=== PATIENT | female | born 1940 | race Caucasian/White ===

== ENCOUNTER 2016-12-16 05:16 | Inpatient (IN) ==
[2016-12-14 09:49] LABS: URINE MICRO REVIEW NEEDED? NO; URINE SOURCE VOIDED
[2016-12-14 09:54] LABS: MANUAL DIFF NEEDED? NO
[2016-12-14 10:04] LABS: BASO% 0.2 % (0.0-0.8); BILIRUBIN URINE NEGATIVE (NEGATIVE); BLOOD URINE NEGATIVE (NEGATIVE); COLOR YELLOW; EOS# 0.16 X1000 (0.0-0.7); EOS% 1.9 % (0.0-10.0); GLUCOSE URINE NEGATIVE (NEGATIVE); HEMATOCRIT 43.9 % (37.0-47.0); HEMOGLOBIN 14.5 g/dL (12.0-16.0); IMM GRAN# 0.02 X1000 (0.0-0.04); IMM GRAN% 0.2 % (0.0-0.5); LEUKOCYTES URINE MODERATE (NEGATIVE); LYMPH# 2.01 X1000 (1.2-3.4); LYMPH% 23.3 % (20.5-51.1); MCH 30.7 PG (27-31); MONO# 0.81 X1000 (0.11-0.59); MONO% 9.4 % (1.7-9.3); NITRITE URINE POSITIVE (NEGATIVE); PH URINE 5.5; PLT 202 X1000 (130-400); PROTEIN URINE NEGATIVE (NEGATIVE); RBC 4.72 XMIL (4.2-5.4); SP GRAVITY URINE 1.018; TURBIDITY URINE HAZY (CLEAR); UR EPITHELIAL CELLS <10 /HPF (<10); URINE BACTERIA 4+ /HPF; URINE RBC <10 /HPF (<10); UROBILINOGEN URINE NORMAL (NORMAL)
[2016-12-14 10:18] LABS: INR 0.99; PROTIME 10.4 Seconds (9.2-11.7); PTT 25.9 Seconds (22.0-36.0)
[2016-12-14 10:26] LABS: AGAP 15; BUN 23 mg/dL (8-22); CALCIUM 10.2 mg/dL (8.8-10.2); CHLORIDE 97 mmol/L (98-107); COSMO 286; POTASSIUM 3.8 mmol/L (3.5-5.1); SODIUM 141 mmol/L (136-145); TCO2 29 mmol/L (25-35)
[2016-12-16] MEDS ORDERED: LR 1,000 ML ONE ×2 (06:11→10:56)
[2016-12-16] MEDS ORDERED: COLACE ONE (06:11)
[2016-12-16] MEDS ORDERED: LYRICA ONE (06:11)
[2016-12-16] MEDS ORDERED: PEPCID ONE (06:11)
[2016-12-16] MEDS ORDERED: REGLAN ONE (06:11)
[2016-12-16] MEDS ORDERED: CELEBREX ONE (06:11)
[2016-12-16] MEDS ORDERED: KEFZOL 2 GM/D5W 2 GM/50 ML IVPB ONE (06:12)
[2016-12-16] MEDS ORDERED: SODIUM CHLORIDE 0.9% ONE (06:58)
[2016-12-16] MEDS ORDERED: NEOSPORIN G.U. IRRIGANT ONE (06:58)
[2016-12-16] MEDS ORDERED: TORADOL ONE (06:58)
[2016-12-16] MEDS ORDERED: EXPAREL 1.3% ONE (06:58)
[2016-12-16] MEDS ORDERED: VANCOMYCIN ONE (06:58)
[2016-12-16] MEDS ORDERED: CYKLOKAPRON 1,000 MG/NS 1,000 MG/100 ML IVPB ONE ×2 (06:58→06:59)
[2016-12-16] MEDS ORDERED: MARCAINE 0.25% PF/EPI 1:200,000 ONE (06:58)
[2016-12-16] MEDS ORDERED: DIPRIVAN 1% 0 MG/0 ML BOTTLE ONE (07:12)
[2016-12-16 08:24] LABS: URINE MICRO REVIEW NEEDED? NO; URINE SOURCE CATH
[2016-12-16 08:32] LABS: BILIRUBIN URINE NEGATIVE (NEGATIVE); BLOOD URINE NEGATIVE (NEGATIVE); COLOR YELLOW; GLUCOSE URINE NEGATIVE (NEGATIVE); LEUKOCYTES URINE NEGATIVE (NEGATIVE); NITRITE URINE NEGATIVE (NEGATIVE); PROTEIN URINE NEGATIVE (NEGATIVE); SP GRAVITY URINE 1.019; TURBIDITY URINE CLEAR (CLEAR); UR EPITHELIAL CELLS <10 /HPF (<10); URINE BACTERIA NEGATIVE /HPF; URINE RBC <10 /HPF (<10); URINE WBC <10 /HPF (<10); UROBILINOGEN URINE NORMAL (NORMAL)
[2016-12-16] MEDS ORDERED: LANOXIN PO SCH (09:00)
[2016-12-16] MEDS ORDERED: DIPRIVAN 1% ONE (09:50)
[2016-12-16] MEDS ORDERED: FENTANYL ONE (09:50)
--- NOTE | 2016-12-16 10:07 | OPERATIVE NOTE ---
PROCEDURE DATE: 12/16/2016 PREOPERATIVE DIAGNOSIS: Degenerative osteoarthritis of the left knee. POSTOPERATIVE DIAGNOSIS: Degenerative osteoarthritis of the left knee. PROCEDURE: Left total knee arthroplasty with DePuy Attune size 6 post posterior stabilized femur, size 6 tibial tray, 7 mm rotating platform tibial insert, and a 35 mm medialized anatomic patella. SURGEON: Josesito Rocha MD. ASSISTANTS: HERMILA Nicholson. SECOND RN TRAVELING: JESSICA Almonte. ANESTHESIA: General. IV FLUIDS: 1200 mL lactated Ringer. ESTIMATED BLOOD LOSS: 30 mL. TOURNIQUET TIME: 85 minutes at 400 mmHg. COMPLICATIONS: None. INDICATION: The patient is a 76-year-old female with chronic history of worsening pain and discomfort in the left knee. X-rays revealed significant degenerative osteoarthritis. She has continued pain and discomfort despite appropriate nonoperative treatment. Recommendation to proceed with left total knee arthroplasty was offered. Risks and benefits of surgery were explained, including the risks of anesthesia, , bleeding, infection, failure to relieve pain, postoperative stiffness, nerve injury, blood clots, and other imponderables. All questions were answered. The patient and family wish to proceed with surgery. DETAILS OF THE OPERATION: The patient was taken to the operating room and placed supine on the operating table. Once adequate anesthesia was obtained, patient's left lower extremity was subsequently prepped and draped in usual sterile fashion. Esmarch was used to exsanguinate the left lower extremity and the tourniquet was inflated to 400 mL mmHg. A standard anterior incision was made with a skin knife. Medial and lateral skin envelopes were developed. A standard medial parapatellar arthrotomy was then performed. Patella fat pad was excised. Retractor was then placed. Approximately 1 cm anterior to the PCL insertion, a starting reamer was passed. Intramedullary guide was then placed with the distal femoral cutting block. A distal femoral cut was then performed in standard fashion. A sizing block was placed and measured to size 6. Corresponding pins were placed. Anterior, posterior, and chamfer cuts were then made. After this had been performed, attention was then turned to the proximal tibia where further resection of the ACL and PCL was performed. Using the extramedullary guide, the proximal tibia cutting block was pinned in position. The proximal tibia was then resected. A curved osteotome was used to remove the posterior osteophytes off the distal femur. A spacer block was placed and had good soft tissue balancing in both flexion and extension. Prior to checking the soft tissue balancing, the medial and lateral meniscus was excised. Attention turned back to the proximal tibia where a size 6 appeared to be the correct size. The tibial tray was pinned in position. This was followed by a central reamer and a fin punch. A box cutting guide was then pinned on the distal femur and a box cut was performed. Trial femoral insert was then placed and 2 lug holes were drilled. Trial tibial insert was then placed. The patella was everted and resected in standard fashion. A size 35 appeared to be the correct size. Corresponding holes were drilled. A size 35 patella component was then placed and had some lateral translation. Therefore, a lateral release was then performed. Had good patellofemoral tracking after this had been conducted. The components were then removed. Copious irrigation was then performed with antibiotic irrigation while vancomycin was mixed with cement on the back table. Sequential cementing was then performed, first with a tibial tray and excess cement was removed with a Modena, followed by the femoral component and excess cement removed with a Modena, followed by a trial tibial insert in full extension and axial loading was maintained while the cement cured. The patella cemented in standard fashion. Patella clamp was placed. Exparel was placed in the deep soft tissue, as well as subcutaneous tissue while the cement was curing. After cement had cured the trial tibial insert 7 mm was deemed to be the correct size. Had good soft tissue balancing and range of motion. The trial tibial insert was removed. Exparel was placed in the deep posterior capsule. The wound was copiously irrigated once again with antibiotic pulsatile lavage. A 7 mm rotating platform tibial insert was placed and had good soft tissue balancing and good patellofemoral tracking. A 1/8 Hemovac drain was placed and was not sewn in. Copious irrigation then performed once again with antibiotic pulsatile lavage. Number 1 Vicryl was used to repair the arthrotomy, followed by 2-0 Vicryl in the subcutaneous tissue, and skin hair. Adaptic, sterile 4 x 4, ABD pad, Webril, cryo unit, and Rudy wrap was placed on the left lower extremity. The patient tolerated the procedure well with no complications and was transferred to recovery room in stable condition. cc: Josesito Rocha MD
--- NOTE | 2016-12-16 10:13 | Diag Imaging Result Doc PS360 ---
KNEE 1-2 VIEWS-LEFT - 12/16/2016 INDICATION: l tka TECHNIQUE: Two views COMPARISON: None FINDINGS: There has been left total knee arthroplasty. Alignment is anatomic. No evidence of hardware fracture or loosening. IMPRESSION: No evidence of complication. Electronically signed by Ricky Patel 12/16/2016 10:11 AM
[2016-12-16] MEDS: NORVASC PO SCH (10:21)
[2016-12-16] MEDS: PROTONIX PO SCH (10:21)
[2016-12-16] MEDS: LIPITOR PO SCH (10:21)
[2016-12-16] MEDS: BETAPACE PO SCH ×2 (10:21→20:35)
[2016-12-16] MEDS: SYNTHROID PO SCH (10:21)
[2016-12-16] MEDS: CATAPRES PO SCH ×2 (10:22→20:35)
[2016-12-16] MEDS: COZAAR PO SCH (10:22)
[2016-12-16] MEDS: DYAZIDE PO SCH (10:22)
[2016-12-16] MEDS ORDERED: NS 1,000 ML ONE (10:32)
[2016-12-16] MEDS ORDERED: DECADRON ONE (10:56)
[2016-12-16] MEDS ORDERED: OFIRMEV 1000 MG/ISOTONIC SOLN 1,000 MG/100 ML BOTTLE ONE (10:56)
[2016-12-16] MEDS ORDERED: XYLOCAINE-MPF 2% ONE (10:56)
[2016-12-16] MEDS ORDERED: ZOFRAN ONE (10:56)
[2016-12-16] MEDS ORDERED: MORPHINE IV PRN (11:24)
[2016-12-16] MEDS: NS 1,000 ML IV SCH ×2 (11:24→20:34)
[2016-12-16] MEDS ORDERED: ZOFRAN IV PRN (11:28)
[2016-12-16] MEDS ORDERED: MILK OF MAGNESIA PO PRN (11:28)
[2016-12-16] MEDS: OXY IR PO PRN ×2 (11:38→20:36)
[2016-12-16] MEDS: KEFZOL 2 GM/D5W 2 GM/50 ML IVPB IV SCH ×2 (14:23→23:37)
[2016-12-16] MEDS ORDERED: XARELTO PO SCH (17:00)
[2016-12-16] MEDS: TYLENOL PO SCH ×2 (18:08→23:37)
[2016-12-16] MEDS: PERIDEX MT SCH (20:34)
[2016-12-16] MEDS: COLACE PO SCH (20:35)
[2016-12-16] MEDS ORDERED: CELEXA PO SCH (21:00)
[2016-12-17] MEDS: NS 1,000 ML IV SCH ×2 (00:54→11:44)
[2016-12-17] MEDS: OXY IR PO PRN ×2 (05:58→11:43)
[2016-12-17] MEDS: TYLENOL PO SCH (05:58)
[2016-12-17] MEDS ORDERED: XARELTO PO SCH ×4 (06:00→09:00)
[2016-12-17 06:07] LABS: HEMATOCRIT 35.9 % (37.0-47.0); HEMOGLOBIN 11.7 g/dL (12.0-16.0)
[2016-12-17 06:43] LABS: AGAP 15; BUN 21 mg/dL (8-22); CALCIUM 8.2 mg/dL (8.8-10.2); CHLORIDE 102 mmol/L (98-107); COSMO 286; POTASSIUM 3.8 mmol/L (3.5-5.1); SODIUM 141 mmol/L (136-145); TCO2 24 mmol/L (25-35)
--- NOTE | 2016-12-17 06:58 | PROGRESS NOTE ---
DATE: 12/17/2016 SUBJECTIVE: Patient is a pleasant 76-year-old female who is 1 day status post left total knee arthroplasty. She is currently resting comfortably, has no complaints. OBJECTIVE: On physical exam, the patient's left lower extremity dressing is intact. Her calf is soft. She has active dorsiflexion and plantar flexion. She is neurovascularly intact distally. LABORATORY DATA: Her hemoglobin is 11.7, hematocrit is 35.9. IMPRESSIONS: Postop day #1, status post left total knee arthroplasty. PLAN: At this point, we will change her dressing and discontinue her drain and Ojeda. We will also Hep-Lock her IV. We will plan on discharging home after physical therapy. Will plan on proceeding with outpatient physical therapy. cc: Josesito Rocha MD
[2016-12-17] MEDS: BETAPACE PO SCH (09:29)
[2016-12-17] MEDS: SYNTHROID PO SCH (09:30)
[2016-12-17] MEDS: PERIDEX MT SCH (09:30)
[2016-12-17] MEDS: LIPITOR PO SCH (09:30)
[2016-12-17] MEDS: PROTONIX PO SCH (09:31)
[2016-12-17] MEDS: COLACE PO SCH (09:32)
[2016-12-17] MEDS: COZAAR PO SCH (09:38)
[2016-12-17] MEDS: CATAPRES PO SCH (09:38)
[2016-12-17] MEDS: DYAZIDE PO SCH (09:39)
[2016-12-17] MEDS: NORVASC PO SCH (09:39)
[2016-12-17 11:39] VITALS: BP 124/60
[2016-12-18] MEDS ORDERED: LANOXIN PO SCH (09:00)
== END 2016-12-17 14:17 | disposition home or self-care (01) ==
LOC: SURHOLD 05:16 → 4N 07:31
PROVIDERS: ADMIT Orthopaedic Surgery Adult Reconstructive Orthopaedic Surgery; ATTEND Orthopaedic Surgery Adult Reconstructive Orthopaedic Surgery

== ENCOUNTER 2019-03-21 20:45 | Inpatient (IN) ==
[2019-03-21] MEDS ORDERED: CARDIZEM IV ONE ×2 (21:17→23:23)
--- NOTE | 2019-03-21 21:19 | EKG Report ---
Test Performed on : 03/21/2019 8:50:52 PM Test Reason : A-FIB Blood Pressure : / mmHG Vent. Rate : 130 BPM Atrial Rate : 136 BPM P-R Int : 000 ms QRS Dur : 082 ms QT Int : 294 ms P-R-T Axes : 000 043 253 degrees QTc Int : 432 ms Atrial fibrillation. with rapid ventricular response. ST & T wave abnormality, consider inferolateral ischemia Abnormal ECG When compared with ECG of 13-OCT-2018 09:26, Atrial fibrillation. has replaced Sinus rhythm. Vent. rate has increased BY 70 BPM Non-specific change in ST segment in Inferior leads ST now depressed in Lateral leads T wave inversion now evident in Inferior leads T wave inversion now evident in Lateral leads Confirmed by Veronica BAJWA, Bharathi Goldstein ([id number]) on 03/22/2019 8:33:59 AM
--- NOTE | 2019-03-21 21:33 | Diag Imaging Result Doc PS360 ---
EXAM: CHEST-PORTABLE - 03/21/2019 HISTORY: afib with RVR, palpitations TECHNIQUE: Portable chest COMPARISON: 10/13/2018 FINDINGS: Heart size appears mildly enlarged and stable. There is mild interstitial marking prominence similar to prior. There is no dense consolidation, substantial pleural effusion, or pneumothorax identified. IMPRESSION: Mild cardiomegaly and mild interstitial marking prominence similar to prior. Electronically signed by Yoni Goyal 03/21/2019 9:31 PM
[2019-03-21 21:51] LABS: BASO# 0.02 X1000 (0.0-0.2); BASO% 0.2 % (0.0-0.8); EOS# 0.15 X1000 (0.0-0.7); EOS% 1.7 % (0.0-10.0); HEMATOCRIT 41.7 % (37.0-47.0); IMM GRAN# 0.03 X1000 (0.0-0.04); IMM GRAN% 0.3 % (0.0-0.5); LYMPH# 1.81 X1000 (1.2-3.4); LYMPH% 20.9 % (20.5-51.1); MCH 30.6 PG (27-31); MCHC 33.6 g/dL (33-37); MONO# 0.85 X1000 (0.11-0.59); MONO% 9.8 % (1.7-9.3); MPV 11.9 FL (7.4-10.4); NEUT# 5.82 X1000 (1.4-6.5); NEUT% 67.1 % (42.2-75.2); PLT 167 X1000 (130-400); RBC 4.58 XMIL (4.2-5.4); RDW 14.7 % (11.5-14.5); WBC 8.68 X1000 (4.8-10.8)
[2019-03-21 22:00] LABS: INR 2.51; PROTIME 27.7 Seconds (11.0-16.0); PTT 35.3 Seconds (22.3-41.8)
[2019-03-21] MEDS ORDERED: LOPRESSOR IV ONE (22:10)
[2019-03-21 22:23] LABS: AGAP 18; ALB/GLOB RATIO 1.7; ALBUMIN 4.3 g/dL (3.5-5.0); ALKALINE PHOSPHATASE 65 U/L (32-104); BUN 30 mg/dL (8-22); CALCIUM 9.5 mg/dL (8.8-10.2); CHLORIDE 101 mmol/L (98-107); COSMO 292; CREATININE 0.5 mg/dL (0.5-0.9); ESTIMATED GFR > 60; GLUCOSE 143 mg/dL (70-104); GOT 16 U/L (10-30); GPT 19 U/L (10-36); POTASSIUM 3.2 mmol/L (3.5-5.1); SODIUM 142 mmol/L (136-145); TCO2 23 mmol/L (25-35); TOTAL BILIRUBIN 0.21 mg/dL (0.20-1.00); TOTAL PROTEIN 6.8 g/dL (6.3-8.3)
[2019-03-21] MEDS ORDERED: KLOR-CON PO ONE (22:48)
[2019-03-21] MEDS ORDERED: POTASSIUM CHLORIDE 20% LIQUID PO ONE (23:13)
--- NOTE | 2019-03-21 23:36 | PROVIDER DOCUMENTATION ---
This chart was entered by Fara Donnelly Scribe, acting as scribe for Teresa Mas MD. HPI-Cardiac General - General Chief Complaint: Palpitations Stated Complaint: AFIB Time Seen by Provider: 03/21/19 20:54 Source: patient Allergies/Adverse Reactions: Patient Allergies Allergy/AdvReac Type Severity Reaction Status Date / Time No Known Allergies Allergy Verified 10/13/18 15:45 Home Medications: Home Medication List Medication Instructions Recorded Confirmed Last Taken Type Citalopram Hydrobromide [Celexa] 20 mg PO QHS 12/31/14 10/13/18 1 Day Ago History ~10/12/18 Clonidine [Catapres] 0.1 mg PO BID 12/31/14 10/13/18 10/13/18 History Rivaroxaban [Xarelto] 20 mg PO WSUPPER #90 tablet 01/21/15 10/13/18 1 Day Ago Rx ~10/12/18 Sotalol [Betapace] 120 mg PO BID #180 tablet 01/21/15 10/13/18 10/13/18 Rx Levothyroxine [Synthroid] 175 microgm PO DAILY@0700 #90 05/07/17 10/13/18 10/13/18 Rx tablet Diltiazem HCl [Cartia Xt] 180 mg PO QAM 10/13/18 10/13/18 10/13/18 History Acetaminophen [Tylenol] 650 mg PO Q4H PRN PRN tab 10/14/18 Unknown Rx Hydralazine [Apresoline] 10 mg PO TID tab 10/14/18 Unknown Rx Losartan [Cozaar] 100 mg PO DAILY tab 10/14/18 Unknown Rx - History of Present Illness-Cardiac Nature of Presenting Problem: pt is a 78 yr old female presenting with report that she began feeling her heart racing and fluttering. pt reports hx of Afib, last episode in August, pt is followed by Dr sOman. pt denies any shortness of breath, chest pain or dizziness. Denies any medication changes and reports compliance with her Cardizem PO 180mg BID. Quality of Pain: reports: none Severity in ED: moderate Onset/Duration: abrupt (1944) Timing: still present Context/Activities at Onset: reports: light activity Modifying Factors: improves with: other medication (cardizem-no relief) Palpitation Quality: irregular (fast, fluttering, irregular) History of arrythmia: reports: A-Fib Recent use of:: reports: no stimulants Nitro Today/Relief: reports: no nitro taken today Aspirin Treatment Today: reports: no aspirin today Associated Symptoms: reports: diaphoresis. denies: dizziness, nausea, shortness of breath, vomiting Similar Symptoms Previously?: Yes Recently Seen Here or By Another Healthcare Provider: No Review of Systems - Adult - REVIEW OF SYSTEMS - ADULT Constitutional: denies: fever, fatique Eyes: denies: blurred vision, double vision Ears, Nose, Mouth & Throat: reports: no symptoms reported Cardiovascular: reports: irregular heart rate, palpitations. denies: chest pain, syncope Respiratory: denies: shortness of breath Gastrointestinal: denies: nausea, vomiting Genitourinary: reports: no symptoms reported Musculoskeletal: reports: no symptoms reported Integumentary: reports: no symptoms reported Neurological: denies: dizziness/vertigo, headache/migraines, syncope Psychiatric: reports: no symptoms reported Endocrine: reports: no symptoms reported Hematologic/Lymphatic: reports: no symptoms reported Allergic/Immunologic: reports: no symptoms reported All Other Systems: Reviewed and Negative Past History - Adult - PAST MEDICAL HISTORY-ADULT Review of Records: reports: Old Records Reviewed, Nursing Assessment Review, Medications Reviewed, Social history reviewed & non-contributory. Major Childhood Illnesses: reports: denies history Cardiovascular: reports: A-Fib, HTN Respiratory: reports: sleep apnea Gastrointestinal: reports: denies history Obstetrical/Gynecological: reports: denies history Genitourinary: reports: denies history Musculoskeletal: reports: denies history Neurological: reports: denies history Psychiatric: reports: denies history Endocrine/Immune: reports: thyroid disorder Other Conditions: reports: denies history - PRIOR SURGERIES/PROCEDURES Surgical/Procedure History: reports: cholecystectomy, hysterectomy, joint replacement - IMMUNIZATION STATUS Childhood Immunizations: See Nurse Assessment Flu Vaccine: See Nurse Assessment - FAMILY HISTORY Family History: reviewed, not pertinent - SOCIAL HISTORY Smoking: denies Substance Use: denies Living Situation: family Physical Exam-General - PHYSICAL EXAM-ADULT Initial Vital Signs Reviewed: Yes - CONSTITUTIONAL General Appearance: appears well, alert, no apparent distress, obese - EYES Eyes: PERRL/EOMI - HEAD, EARS, NOSE, MOUTH & THROAT HENMT: normocephalic/atraumatic, moist mucous membranes - NECK Neck: supple, normal inspection - RESPIRATORY Respiratory: chest non-tender, lungs clear, normal breath sounds - CARDIOVASCULAR Cardiovascular: normal peripheral pulses, tachycardia, irregularly irregular - GASTROINTESTINAL (ABDOMEN) Abdominal Exam: normal bowel sounds, non tender, soft - MUSCULOSKELETAL Back Exam: normal inspection Extremity: normal range of motion, non-tender, normal gait, normal inspection - SKIN Integumentary: normal color, normal turgor, warm/dry - NEUROLOGIC Neurologic: grossly normal - PSYCHIATRIC Psych/Mental Status: normal mood/affect, oriented x 3 Progress - PLAN OF CARE/RESULTS Progress/Plan/Lab Results: Vital Signs - 8 hr 03/21/19 20:50 Temperature 98.7 F Pulse Rate 130 H Respiratory Rate 19 Blood Pressure 135/89 O2 Sat by Pulse Oximetry 95 Laboratory Results - last 24 hr 03/21/19 03/21/19 03/21/19 21:36 21:36 21:36 WBC 8.68 RBC 4.58 Hgb 14.0 Hct 41.7 MCV 91.0 MCH 30.6 MCHC 33.6 RDW Std Deviation 14.7 H Plt Count 167 MPV 11.9 H Immature Gran % (Auto) 0.3 Neut % (Auto) 67.1 Lymph % (Auto) 20.9 Mayes % (Auto) 9.8 H Eos % (Auto) 1.7 Baso % (Auto) 0.2 Immature Gran # (Auto) 0.03 Neut # (Auto) 5.82 Lymph # (Auto) 1.81 Mayes # (Auto) 0.85 H Eos # (Auto) 0.15 Baso # (Auto) 0.02 PT INR PTT (Actin FS) Sodium 142 Potassium 3.2 L Chloride 101 Carbon Dioxide 23 L Anion Gap 18 BUN 30 H Creatinine 0.5 Estimated GFR/1.73 m2 > 60 BUN/Creatinine Ratio 60 Glucose 143 H Calculated Osmolality 292 Calcium 9.5 Total Bilirubin 0.21 AST 16 ALT 19 Alkaline Phosphatase 65 Troponin T Ina-X-Unvmrbdetqa Pept 364 Total Protein 6.8 Albumin 4.3 Globulin 2.5 Albumin/Globulin Ratio 1.7 03/21/19 03/21/19 21:36 21:36 WBC RBC Hgb Hct MCV MCH MCHC RDW Std Deviation Plt Count MPV Immature Gran % (Auto) Neut % (Auto) Lymph % (Auto) Mayes % (Auto) Eos % (Auto) Baso % (Auto) Immature Gran # (Auto) Neut # (Auto) Lymph # (Auto) Mayes # (Auto) Eos # (Auto) Baso # (Auto) PT 27.7 H INR 2.51 PTT (Actin FS) 35.3 Sodium Potassium Chloride Carbon Dioxide Anion Gap BUN Creatinine Estimated GFR/1.73 m2 BUN/Creatinine Ratio Glucose Calculated Osmolality Calcium Total Bilirubin AST ALT Alkaline Phosphatase Troponin T < 0.010 Ahg-O-Wuxchnxonik Pept Total Protein Albumin Globulin Albumin/Globulin Ratio Orders Category Date Time Status CHEST-PORTABLE [RAD] Stat Exams 03/21/19 21:16 Completed CBC WITH ELECTRONIC DIFF [HEME] Stat Lab 03/21/19 21:36 Completed COMPREHENSIVE METABOLIC PANEL [CHEM] Stat Lab 03/21/19 21:36 Completed OCCULT BLOOD DIAG 1-[address] Stat Lab 03/22/19 00:17 Uncollected PRO B-NATRIURETIC PEPTIDE Stat Lab 03/21/19 21:36 Completed PROTIME WITH INR [COAG] Stat Lab 03/21/19 21:36 Completed PTT [COAG] Stat Lab 03/21/19 21:36 Completed TROPONIN T Stat Lab 03/21/19 21:36 Completed Diltiazem 125 mg/D5w [Cardizem 125 mg/D5w] Med 03/21/19 23:30 Active 125 mg in 125 ml IV As Directed mls/hr Diltiazem [Cardizem] Med 03/21/19 21:17 Discontinued 10 mg IV NOW ONE Diltiazem [Cardizem] Med 03/21/19 23:23 Discontinued 10 mg IV NOW ONE Metoprolol [Lopressor] Med 03/21/19 22:10 Discontinued 5 mg IV NOW ONE Ns + KCl 20 Meq 1,000 ml Med 03/22/19 00:09 Active IV 125 mls/hr Potassium Chloride 20% Liquid Med 03/21/19 23:13 Discontinued 40 meq PO NOW ONE Potassium Chloride E.r. [Klor-Con] Med 03/21/19 22:48 Discontinued 40 meq PO NOW ONE EKG [EKG] Stat Ther 03/21/19 21:16 Draft Transfer/Admit Order [TRANSFER] Routine Transfer 03/22/19 00:00 Ordered Patient with initial HR in the 120-130s. She was given a dose of Caridzem 10mg IV and this did not seem to control her HR. She continued to stay in the 120s. Gave patient dose of IV metoprolol and she came down slightly more to low 100s but would still continue to increase to the 120s-130s. Spoke to patient about need for cardizem drip. She agrees with admission. Spoke with Dr Pan who accepted patient for admission. K repleted. Troponin negative. INR is therapeutic. Further orders to be placed by hospitalist team. Result Diagrams: 03/21/19 21:36 03/21/19 21:36 - EKG 1 Time of EKG reading by physician:: 20:50 EKG Read and Signed by:: Teresa Mas EKG Interpretation (*Must complete 3 of following elements*): Abnormal (st and t wave abnormality, consider inferolateral ischemia) Rate: 130 Rhythm: atrial fibrillation with RVR ST Wave: normal - XRAY 1 XRAY Study: Chest Impression: Abnormal ( EXAM: CHEST-PORTABLE - 03/21/2019 HISTORY: afib with RVR, palpitations TECHNIQUE: Portable chest COMPARISON: 10/13/2018 FINDINGS: Heart size appears mildly enlarged and stable. There is mild interstitial marking prominence similar to prior. There is no dense consolidation, substantial pleural effusion, or pneumothorax identified. IMPRESSION: Mild cardiomegaly and mild interstitial marking prominence similar to prior. Electronically signed by Yoni Goyal 03/21/2019 9:31 PM 03/21/192130 Interpreting Physician: Yoni Goyal MD Dictated Date/Time: 03/21/192129 cc: Teresa Mas MD; Dakota Johnston MD) Comparison with other Films: no changes (10/13/18) - CONSULTS/PCP/HOSPITALIST Notification Time Discussed: 23:35 Reason/Comments: Dr Pan Consult Disposition: Admit Departure - Departure Date of Disposition Decision: 03/21/19 Time of Disposition Decision: 23:35 DIAGNOSIS: Atrial fibrillation with RVR, Palpitations, Hypokalemia Disposition: ADMITTED INPATIENT Certified Medical Emergency: Emergent Condition: Stable Referrals and Follow-Ups: Dakota Johnston MD [Primary Care Provider] - - Critical Care Note This patient required my direct & personal management of CC.: Yes Total Time (mins): 75 Critical Care Statement: This patient required my direct personal management to treat or rule out processes, the absence of which, could potentiallly result in sudden, clinically significant life or limb threatening deterioration. Attestation - Physician/ SESAR Attestation Patient care was provided by Advanced Practice Provider:: No The physician spent face to face time with patient:: Yes Advanced Practice Provider documentation review:: Supervising physician onsite and consulted in the evaluation and care of this patient. The physician did have a face to face encounter with the patient. This chart was documented by the indicated scribe, (Fara Donnelly Scribe) and accurately reflects the services I performed and decisions made by me, Teresa Mas MD, as attested by the provider's signature.
[2019-03-21] MEDS: CARDIZEM 125 MG/D5W 125 MG/125 ML IVPB IV SCH (23:52)
[2019-03-22] MEDS ORDERED: NS + KCL 20 MEQ 1,000 ML IV ONE (00:09)
--- NOTE | 2019-03-22 01:14 | HISTORY AND PHYSICAL ---
REASON FOR ADMISSION: Fluttering heart today, 1 days' duration. HISTORY OF PRESENT ILLNESS: Ms. Trent Alex is a 78-year-old woman with a past medical history of atrial fibrillation, hypothyroidism, hypertension, obstructive sleep apnea, hyperlipidemia, reflux disease, diverticulosis, who came in late last night because after taking her evening medication and sitting down she noticed a funny fluttering sensation in her heart. Shortly after which she started having some degree of dyspnea at rest. She denies any antecedent history of long distance travel, leg swelling, PND, orthopnea, chest pain. She did break out in a sweat and checked her blood pressure, it was in the 150/90 range; however, her heart rate in the 130s and was frequently changing. She said this is consistent with her prior episodes of having atrial fibrillation with a high rate. Denies any other cardiorespiratory complaints. Denies any change in her medications, although they did increase the dose of her Synthroid 2 months ago. Denies any GI or complaints. No focal neurological complaints. No headache or visual problems. No polyuria or polydipsia. REVIEW OF SYSTEMS: Twelve system was done, positive findings per HPI. Patient denies any vomiting, diarrhea, or bleeding. HOME MEDICATIONS: Have not been reconciled, but per her old records, she has been on sotalol, Xarelto, Cardizem, and levothyroxine to name a few. ALLERGIES: Amlodipine, Crestor, fenofibrate, Imodium, Lipitor. SOCIAL HISTORY: Does not smoke, drink, or use drugs actively. No illicit drug use. FAMILY HISTORY: Notable for heart disease and possible pancreatic cancer. LABORATORY WORK: EKG showed atrial fib with rapid ventricular rate, nonspecific ST, T-wave changes. Her potassium was notably low at 3.2, BUN is 30, creatinine 0.5. Glucose 143. White count 8000, H and H 14 and 41, platelets 167,000 with no notable differential. Troponin's negative. PTT is normal. PT was 27, INR 2.5. Chest film, mild cardiomegaly with mild interstitial marking prominence similar to prior. In addition, the patient has had a prior stress test done in October of this year. Echo was not noted, but I presume was done this year. PHYSICAL EXAMINATION: GENERAL: An pleasant, obese, elderly woman, not in acute distress. A and O x3. Normal mood and affect. VITAL SIGNS: Heart rate is 130, temperature is 98.7 degrees, respirations 19, blood pressure 155/89, O2 saturation 95% on room air. HEENT: Head is normocephalic, atraumatic. Eyes: KEITH, EOMI. She is anicteric, not pale. ENT: Grossly normal, there is some cyanosis. NECK: Supple. No JVD or carotid bruit. No thyromegaly. CHEST: Clear when auscultated in both lung powell. CARDIOVASCULAR: First and second heart sounds heard. No gallops, murmurs, rubs. Rhythm is irregular. ABDOMEN: Protuberant, soft, nontender. No mass, megaly. Bowel sounds normal. Rectal exam deferred at this time. EXTREMITIES: Patient has good distal pulse volumes, although there is fluctuating pulse volume and irregular rhythm, but pulses are symmetrical. No edema, clubbing, or peripheral cyanosis. NEUROLOGICAL: No gross focal deficits. SKIN: Intact. No breakdown, lesions, or erythema. MUSCULOSKELETAL: Grossly normal. ASSESSMENT: 1. Atrial fibrillation with a rapid ventricular rate. 2. Hypertension. 3. Hyperlipidemia. 4. Obstructive sleep apnea. 5. Hypothyroidism. 6. Hypokalemia. 7. Probable dehydration. PLAN: Patient will be transferred to our step-down unit, if there are no beds she can bored in the ICU. We will start her on Cardizem drip. She was given IV push of Cardizem x2, and metoprolol, which will transiently keep her heart rate down below 100, but after about 10 to 15 minutes it would spike back into the 120s to 130s. We will continue her sotalol and Xarelto, if she still taking these and they have been reconciled. We will check a TSH since recently they bumped up her dose, to ensure this is not the inciting factor. Check her magnesium level, correct it also if it is low. I have not ordered an echocardiogram, I will defer to Dr. Dakota Johnston to decide if he wants to do this. The patient's BUN is slightly elevated, I do not know if the patient is dehydrated, however, also entertain the possibility of a possible occult upper GI bleed and Hemoccult may be in ordered, BUN and creatinine closely followed, even though the patient denies any bleeding or melanotic stools. cc: MD Dakota William MD
[2019-03-22] MEDS ORDERED: ZOFRAN IV PRN (02:01)
[2019-03-22] MEDS ORDERED: TYLENOL PO PRN ×2 (02:01→08:57)
[2019-03-22] MEDS: CARDIZEM 125 MG/D5W 125 MG/125 ML IVPB IV SCH (06:31)
[2019-03-22] MEDS ORDERED: MAGNESIUM SULFATE 2 GM/S.W.I. 2 GM/50 ML IVPB IV ONE (09:49)
[2019-03-22] MEDS ORDERED: BETAPACE PO ONE (10:31)
[2019-03-22] MEDS: SYNTHROID PO SCH (10:39)
--- NOTE | 2019-03-22 10:46 | CARDIOLOGY CONSULTATION ---
DATE: 03/22/2019 INDICATION FOR THE CONSULTATION: Heart fluttering. HISTORY OF PRESENT ILLNESS: Ms. Alex is a 78-year-old female with a past medical history of atrial fibrillation, hypothyroidism, hypertension. She presented for complaints of palpitations and shortness of breath that began last night after she ate at [employer]. She reports no recent illnesses. She has been under some emotional stress lately secondary to undergoing a renovation at her house. She reports no chest pain. She has been compliant with her medications including her sotalol as well as her Xarelto. She has had no recent bleeding issues. PAST MEDICAL HISTORY: 1. Atrial fibrillation with previous cardioversions and 2014, 2016 and earlier this year. She is maintained on sotalol and Xarelto. 2. Coronary disease with calcium score total of 231. 3. Hypertension. 4. Hyperlipidemia. 5. Reflux disease. 6. Hypothyroidism. 7. Obstructive sleep apnea. SOCIAL HISTORY: She is . is present in the room. No tobacco products. FAMILY HISTORY: Father at 69 due to a heart attack. Mother at 93 secondary to possible pancreatic cancer. REVIEW OF SYSTEMS: A 10 system review of systems is negative except for those mentioned HPI. PHYSICAL EXAMINATION: She is afebrile. Her heart rate presently is in the 110s to 120s. She is on a diltiazem infusion. Her blood pressure is 134/72.General: She is in no acute distress. HEENT: Oropharynx is moist. Poor dentition. Eye examination is pink conjunctivae. White sclerae. Neck: Examination shows no obvious thyromegaly or thyroid tenderness. Cardiovascular: She is found to be in an irregularly irregular tachycardic rhythm. She has no murmurs. She has no S3. She has no lower extremity edema. Chest: Clear bilaterally. She has no increased work of breathing. Abdomen: Soft, nontender, nondistended. She has no obvious organomegaly. Skin: Warm and dry throughout without any rashes. Neurological: She is moving all extremities well. She has no lateralizing deficits. PERTINENT DATA: She had an EKG ordered on presentation that shows atrial fibrillation with RVR rate of 130 beats per minute. She has mild diffuse nonspecific ST-segment changes. Her chest x- ray on presentation demonstrated mild cardiomegaly with mild interstitial prominence. LABORATORY DATA: Shows a white count of 8.7, hematocrit is 41, platelet count is 167,000, INR 2.5. Sodium 142, potassium 3.2, BUN 30, creatinine 0.5. Her TSH today is 9.41. Her Mag level is 1.6. ASSESSMENT: Ms. Alex is a 78-year-old female who presents with complaints of palpitations and found to be in atrial fibrillation. PLAN: We will schedule cardioversion today. We will increase her sotalol to 160 b.i.d. I will replete her potassium as well as give her some additional magnesium. She was given potassium yesterday evening at 23:00. I will give her some magnesium. cc: MD Dakota Sanford MD
[2019-03-22] MEDS ORDERED: ROBINUL ONE (10:50)
[2019-03-22] MEDS ORDERED: DIPRIVAN 1% ONE (10:50)
[2019-03-22] MEDS ORDERED: XYLOCAINE-MPF 2% ONE (10:50)
[2019-03-22] MEDS ORDERED: ANESTHESIA PB SET 88 IN 5742 ONE (10:58)
[2019-03-22] MEDS ORDERED: CLAVE TWINSITE 32 IN 11959 ONE (10:58)
[2019-03-22] MEDS ORDERED: NS 1,000 ML ONE (10:58)
--- NOTE | 2019-03-22 11:46 | CARDIAC CATH REPORT ---
PROCEDURE NAME: - INDICATION: Atrial fibrillation. PROCEDURE IN DETAIL: Ms. Alex was brought to the catheterization laboratory in a fasting state. Informed consent was obtained. Prepped in the usual fashion. She was anesthetized with propofol per anesthesia. After appropriate sedation, she was converted to sinus with 1 shock delivered in a synchronized fashion at 120 joules. No apparent complications. She tolerated the procedure well. cc: MD Dakota Sanford MD
[2019-03-22] MEDS: CARDIZEM CD PO SCH (16:11)
[2019-03-22] MEDS: APRESOLINE PO SCH ×2 (16:11→20:52)
[2019-03-22] MEDS ORDERED: XARELTO PO SCH (17:00)
--- NOTE | 2019-03-22 18:15 | PROGRESS NOTE ---
DATE: 03/22/2019 SUBJECTIVE: Patient's chart was reviewed. In summary, patient was admitted early this morning with atrial fibrillation with rapid ventricular response. The patient was started on a Cardizem drip. Upon my arrival this morning, patient was rate controlled. Overall, she states she was feeling better, but noted "fluttering". Dr. Khan was consulted. Patient was taken for cardioversion. Patient tolerated this quite well. This afternoon, patient is resting in bed. At present time, she denies significant symptoms. She is in a normal sinus rhythm. She denies fevers, chills, nausea, vomiting, shortness of breath, or chest discomfort. OBJECTIVE: Vital Signs: T-max 98.7 degrees, heart rate 56 to 66, respirations 19 to 30, blood pressure 120 to 145 over 66 to 89. General: Well nourished, well developed, in no acute distress. Cardiovascular: Regular rate and rhythm. No significant murmurs, rubs, or gallops. Pulmonary: Clear to auscultation bilaterally. Abdomen: Soft, nontender, nondistended. Positive bowel sounds. Extremities: Moves all extremities well. No significant clubbing, cyanosis, or edema. Dermatologic: Evaluation reveals no evidence of rash. LABORATORY DATA: TSH 9.41. ASSESSMENT AND PLAN: 1. Atrial fibrillation with rapid ventricular response: I appreciate Dr. Khan's consultation. Patient is status post cardioversion. She is in a normal sinus rhythm. He has requested increasing sotalol to 160 mg twice daily. We will continue additional home medications. We will monitor the patient overnight on telemetry. Should she remain in a sinus generated rhythm, we will plan discharge home. 2. Hypertension: Patient has a longstanding history with difficult to control disease. We will resume her home medications as her blood pressure tolerates. This afternoon, blood pressure is trending upwards. 3. Hypothyroidism: Recently, patient was increased to 175 mcg daily. Interestingly, TSH is elevated. We will increase levothyroxine to 200 mcg daily. We will follow this. While this could have played a role in her atrial fibrillation, I suspect that this is not likely. 4. Hypokalemia: Patient was repleted upon admission. We will check a potassium level in the a.m. 5. Disposition: At this point, patient continues to require half-way care in a hospital setting. We will plan discharge home once appropriate. cc: Dakota Johnston MD
[2019-03-22] MEDS: BETAPACE PO SCH (20:52)
[2019-03-22] MEDS ORDERED: CELEXA PO SCH (21:00)
[2019-03-23 00:47] LABS: URINE SOURCE CLEAN CATCH
[2019-03-23 00:53] LABS: BILIRUBIN URINE NEGATIVE (NEGATIVE); BLOOD URINE TRACE (NEGATIVE); COLOR YELLOW; GLUCOSE URINE NEGATIVE (NEGATIVE); KETONE URINE NEGATIVE (NEGATIVE); LEUKOCYTES URINE LARGE (NEGATIVE); NITRITE URINE POSITIVE (NEGATIVE); PROTEIN URINE TRACE mg/dL (NEGATIVE); SP GRAVITY URINE 1.018; TURBIDITY URINE HAZY (CLEAR); UROBILINOGEN URINE NORMAL (NORMAL)
[2019-03-23 00:55] LABS: UR EPITHELIAL CELLS <10 /HPF (<10); URINE BACTERIA 4+ /HPF; URINE RBC <10 /HPF (<10); URINE WBC TNTC /HPF (<10)
[2019-03-23] MEDS: SYNTHROID PO SCH (06:15)
[2019-03-23 07:00] LABS: BASO# 0.01 X1000 (0.0-0.2); BASO% 0.1 % (0.0-0.8); EOS# 0.17 X1000 (0.0-0.7); EOS% 1.9 % (0.0-10.0); HEMATOCRIT 38.6 % (37.0-47.0); IMM GRAN# 0.03 X1000 (0.0-0.04); IMM GRAN% 0.3 % (0.0-0.5); LYMPH# 1.71 X1000 (1.2-3.4); LYMPH% 19.2 % (20.5-51.1); MCH 30.9 PG (27-31); MCHC 33.7 g/dL (33-37); MCV 91.7 FL (81-99); MONO# 0.81 X1000 (0.11-0.59); MONO% 9.1 % (1.7-9.3); MPV 11.6 FL (7.4-10.4); NEUT# 6.17 X1000 (1.4-6.5); NEUT% 69.4 % (42.2-75.2); PLT 168 X1000 (130-400); RBC 4.21 XMIL (4.2-5.4); RDW 14.6 % (11.5-14.5)
[2019-03-23 07:14] LABS: AGAP 12; BUN 16 mg/dL (8-22); CALCIUM 8.6 mg/dL (8.8-10.2); CHLORIDE 101 mmol/L (98-107); COSMO 278; CREATININE 0.5 mg/dL (0.5-0.9); ESTIMATED GFR > 60; GLUCOSE 111 mg/dL (70-104); POTASSIUM 3.5 mmol/L (3.5-5.1); SODIUM 138 mmol/L (136-145); TCO2 25 mmol/L (25-35)
--- NOTE | 2019-03-23 08:24 | EKG Report ---
Test Performed on : 03/23/2019 07:18:01 AM Test Reason : afib Blood Pressure : / mmHG Vent. Rate : 071 BPM Atrial Rate : 071 BPM P-R Int : 186 ms QRS Dur : 088 ms QT Int : 448 ms P-R-T Axes : 069 065 080 degrees QTc Int : 486 ms Normal sinus rhythm. Nonspecific ST and T wave abnormality Prolonged QT Abnormal ECG When compared with ECG of 21-MAR-2019 20:50, Sinus rhythm. has replaced Atrial fibrillation. Vent. rate has decreased BY 59 BPM Non-specific change in ST segment in Inferior leads T wave inversion no longer evident in Inferior leads T wave inversion no longer evident in Lateral leads Confirmed by Veronica BAJWA, Bharathi Goldstein ([id number]) on 03/23/2019 8:35:40 AM
[2019-03-23] MEDS: APRESOLINE PO SCH (08:48)
[2019-03-23] MEDS: CARDIZEM CD PO SCH (08:51)
[2019-03-23] MEDS: BETAPACE PO SCH (08:51)
[2019-03-23] MEDS ORDERED: CATAPRES PO SCH (09:00)
[2019-03-23] MEDS ORDERED: MICARDIS PO SCH (09:00)
[2019-03-23 11:57] VITALS: BP 144/64
--- NOTE | 2019-03-24 19:55 | DISCHARGE SUMMARY ---
ADMISSION DATE: 03/22/2019 DISCHARGE DATE: 03/23/2019 ADMISSION DIAGNOSIS: Heart fluttering. DISCHARGE DIAGNOSES: 1. Atrial fibrillation with rapid ventricular response, resolved. 2. Hypertension, present on arrival. 3. Hypothyroidism, present on arrival. 4. Hypokalemia, present on arrival. CONSULTATIONS: Dr. Khan with Cardiology was consulted for further evaluation and management of atrial fibrillation with rapid ventricular response. PROCEDURES: A cardioversion was performed on 03/22/2019, by Dr. Khan. HISTORY AND PHYSICAL EXAMINATION: See admit note. PHYSICAL EXAMINATION PRIOR TO DISCHARGE: Temperature 98.2 degrees, heart rate 58, respirations 18, blood pressure is 144/64. General: Well nourished, well developed, no acute distress. Cardiovascular: Regular rate and rhythm. No significant murmurs, rubs, or gallops. Pulmonary: Clear to auscultation bilaterally. Abdomen: Soft, nontender, nondistended. Positive bowel sounds. Extremities: Moves all extremities well. No significant clubbing, cyanosis, or edema. Dermatologic: No evidence of rash. LABORATORY DATA: White blood cell count 8.90, hemoglobin 13.0, hematocrit 38.6, platelet count 168,000. Sodium 138, potassium 3.5, chloride 101, bicarbonate 25, BUN 16, creatinine 0.6, glucose 111, calcium 8.6. Urinalysis revealed positive nitrite, 4+ bacteria, [id number]-count white blood cells. HOSPITAL COURSE: The patient was admitted as per history and physical examination. Hospital course per condition is as follows: 1. Atrial fibrillation with rapid ventricular response. Upon admission, patient was noted to have atrial fibrillation with rapid ventricular response. Patient was placed on IV diltiazem. Dr. Khan was consulted. As patient was anticoagulated and has responded well to cardioversion in the past, she was taken immediately for cardioversion. Patient tolerated this quite well. The patient returned to a sinus-generated rhythm. The patient's sotalol was increased to 160 mg twice daily. The patient remained in a sinus-generated rhythm throughout the remainder of the hospitalization. She will be discharged home with her previous home medicines with the exception of decreasing sotalol to 160 mg twice daily. 2. Hypertension. Patient has longstanding, difficult to control disease. Blood pressure was labile while hospitalized. The patient was continued on her home medications. 3. Hypothyroidism. Patient's TSH was noted to be elevated upon admission. Patient's levothyroxine was increased to 200 mcg daily. Patient will be followed closely as an outpatient. 4. Hypokalemia. Patient was diagnosed upon admission. The patient was treated with potassium supplementation with improvement. 5. Urinary tract infection. Patient was diagnosed while hospitalized. She was started on Keflex therapy. She will complete a 7-day course as an outpatient. DISCHARGE CONDITION: Good. DISPOSITION: Discharge to home. MEDICATIONS: 1. Sotalol 160 mg twice daily. 2. Levothyroxine 200 mcg daily. 3. Keflex 500 mg twice daily. 4. Celexa 20 mg at bedtime. 5. Clonidine 0.1 mg twice daily. 6. Xarelto 20 mg with supper. 7. Cardia XT 180 mg daily. 8. Tylenol 650 mg every 4 hours as needed. 9. Hydralazine 10 mg 3 times daily. 10. Telmisartan 80 mg daily. FOLLOWUP: Patient is to follow up with me in approximately 1 to 2 weeks. cc: Dakota Johnston MD
== END 2019-03-23 15:07 | disposition home or self-care (01) | DRG 310 ==
LOC: ED 20:45 → SUATTDRO 03-22 01:53 → ICU 03-22 01:53 → 4N 03-22 17:04
PROVIDERS: ADMIT Internal Medicine; ATTEND Internal Medicine

== ENCOUNTER 2019-08-07 11:51 | Inpatient (IN) ==
[2019-08-07] MEDS ORDERED: CARDIZEM IV ONE ×2 (12:19→13:33)
--- NOTE | 2019-08-07 12:49 | Diag Imaging Result Doc PS360 ---
EXAM: CHEST-1 VIEW 08/07/2019 HISTORY: Palpitations TECHNIQUE: AP portable upright at 1238 COMMENT: There is mild cardiomegaly. The lungs have not changed significantly in appearance since 03/21/2019. IMPRESSION: Stable chest. Electronically signed by Peewee Romero 08/07/2019 12:47 PM
[2019-08-07 12:55] LABS: BASO# 0.04 X1000 (0.0-0.2); BASO% 0.5 % (0.0-0.8); EOS# 0.13 X1000 (0.0-0.7); EOS% 1.6 % (0.0-10.0); HEMATOCRIT 40.6 % (37.0-47.0); HEMOGLOBIN 13.1 g/dL (12.0-16.0); IMM GRAN# 0.03 X1000 (0.0-0.04); IMM GRAN% 0.4 % (0.0-0.5); LYMPH# 1.95 X1000 (1.2-3.4); LYMPH% 24.4 % (20.5-51.1); MCH 30.2 PG (27-31); MCHC 32.3 g/dL (33-37); MCV 93.5 FL (81-99); MONO# 0.89 X1000 (0.11-0.59); MONO% 11.1 % (1.7-9.3); NEUT# 4.96 X1000 (1.4-6.5); PLT 154 X1000 (130-400); RBC 4.34 XMIL (4.2-5.4); RDW 14.3 % (11.5-14.5)
[2019-08-07 13:09] LABS: INR 1.28; PROTIME 16.2 Seconds (11.0-16.0)
[2019-08-07 13:10] LABS: PTT 25.7 Seconds (22.3-41.8)
[2019-08-07 13:45] LABS: AGAP 14; ALB/GLOB RATIO 1.2; ALBUMIN 3.9 g/dL (3.5-5.0); ALKALINE PHOSPHATASE 63 U/L (32-104); BUN 25 mg/dL (8-22); CALCIUM 9.4 mg/dL (8.8-10.2); CHLORIDE 98 mmol/L (98-107); CK PROFILE 66 U/L (24-173); COSMO 278; CREATININE 0.7 mg/dL (0.5-0.9); ESTIMATED GFR > 60; GLUCOSE 97 mg/dL (70-104); GOT 26 U/L (10-30); GPT 15 U/L (10-36); SODIUM 137 mmol/L (136-145); TCO2 25 mmol/L (25-35); TOTAL BILIRUBIN 0.39 mg/dL (0.20-1.00); TOTAL PROTEIN 7.2 g/dL (6.3-8.3)
[2019-08-07 14:00] LABS: FREE T4 1.66 ng/dL (0.93-1.70); TSH 0.52 uIUmL (0.27-4.20)
--- NOTE | 2019-08-07 14:03 | EKG Report ---
Test Performed on : 08/07/2019 12:00:44 PM Test Reason : AFIB Blood Pressure : / mmHG Vent. Rate : 145 BPM Atrial Rate : 035 BPM P-R Int : 000 ms QRS Dur : 072 ms QT Int : 334 ms P-R-T Axes : 000 070 -49 degrees QTc Int : 518 ms Undetermined rhythm Low voltage QRS Nonspecific ST and T wave abnormality Abnormal ECG When compared with ECG of 23-MAR-2019 07:18, Current undetermined rhythm precludes rhythm comparison, needs review T wave inversion now evident in Inferior leads Nonspecific T wave abnormality, improved in Lateral leads Unconfirmed Result
[2019-08-07] MEDS ORDERED: CARDIZEM 100 MG/NS 100 MG/100 ML IVPB IV SCH ×2 (15:00→19:15)
--- NOTE | 2019-08-07 15:14 | EKG Report ---
Test Performed on : 08/07/2019 3:11:57 PM Test Reason : CP Blood Pressure : / mmHG Vent. Rate : 133 BPM Atrial Rate : 267 BPM P-R Int : 000 ms QRS Dur : 074 ms QT Int : 274 ms P-R-T Axes : 000 068 -59 degrees QTc Int : 407 ms Atrial fibrillation. with rapid ventricular response. Low voltage QRS Cannot rule out Anterior infarct , age undetermined Abnormal ECG When compared with ECG of 07-AUG-2019 12:00, (Unconfirmed) Previous ECG has undetermined rhythm, needs review Nonspecific T wave abnormality, worse in Lateral leads Unconfirmed Result
[2019-08-07] MEDS ORDERED: NS 1,000 ML IV ONE (15:45)
[2019-08-07] MEDS ORDERED: TYLENOL PO PRN ×2 (15:45→19:12)
[2019-08-07] MEDS ORDERED: ZOFRAN IV PRN (15:45)
[2019-08-07] MEDS ORDERED: MORPHINE IV PRN (15:45)
--- NOTE | 2019-08-07 16:20 | PROVIDER DOCUMENTATION ---
This chart was entered by Charo Rodney Scribe, acting as scribe for Deborah Maciel MD. HPI-Cardiac General - General Chief Complaint: Palpitations Stated Complaint: A-FIB Time Seen by Provider: 08/07/19 12:20 Source: patient Allergies/Adverse Reactions: Patient Allergies Allergy/AdvReac Type Severity Reaction Status Date / Time amlodipine Allergy Unknown Verified 03/22/19 04:11 atorvastatin [From Lipitor] Allergy Unknown Verified 03/22/19 04:11 fenofibrate Allergy Unknown Verified 03/22/19 04:11 loperamide [From Imodium A-D] Allergy Unknown Verified 03/22/19 04:11 rosuvastatin [From Crestor] Allergy Unknown Verified 03/22/19 04:11 Home Medications: Home Medication List Medication Instructions Recorded Confirmed Last Taken Type Citalopram Hydrobromide [Celexa] 20 mg PO QHS 12/31/14 08/07/19 1 Day Ago History ~10/12/18 Clonidine [Catapres] 0.1 mg PO BID 12/31/14 08/07/19 10/13/18 History Rivaroxaban [Xarelto] 20 mg PO WSUPPER #90 tablet 01/21/15 08/07/19 1 Day Ago Rx ~10/12/18 Diltiazem HCl [Cartia Xt] 180 mg PO QAM 10/13/18 08/07/19 10/13/18 History Acetaminophen [Tylenol] 650 mg PO Q4H PRN PRN tab 10/14/18 08/07/19 Unknown Rx Hydralazine [Apresoline] 10 mg PO TID tab 10/14/18 08/07/19 Unknown Rx Telmisartan 80 mg PO DAILY 03/22/19 08/07/19 Unknown History Levothyroxine [Synthroid] 200 microgm PO DAILY@0700 #90 tab 03/23/19 08/07/19 Unknown Rx Sotalol [Betapace] 160 mg PO BID #60 tab 03/23/19 08/07/19 Unknown Rx - History of Present Illness-Cardiac Nature of Presenting Problem: 79yof presents to ED cc Afib, fatigue and SOB since this morning around 9:30am. Pt denies N/V/CP. Pt has hx of Afib and HTN. Pt takes Xarelto daily. Heart rate is 145 upon exam. Quality of Pain: reports: none Severity in ED: moderate Onset/Duration: this morning Timing: still present Context/Activities at Onset: reports: light activity Modifying Factors: improves with: nothing Palpitation Quality: irregular History of arrythmia: reports: A-Fib Associated Symptoms: reports: fatigue, shortness of breath Similar Symptoms Previously?: Yes Recently Seen Here or By Another Healthcare Provider: No Review of Systems - Adult - REVIEW OF SYSTEMS - ADULT Constitutional: reports: see HPI, fatique. denies: chills, fever Eyes: reports: no symptoms reported Ears, Nose, Mouth & Throat: reports: no symptoms reported Cardiovascular: reports: see HPI, irregular heart rate, palpitations, other (el evated heart rate). denies: chest pain, syncope Respiratory: reports: see HPI, shortness of breath. denies: cough, wheezing Gastrointestinal: reports: no symptoms reported Genitourinary: reports: no symptoms reported Musculoskeletal: reports: no symptoms reported Integumentary: reports: no symptoms reported Neurological: reports: no symptoms reported Psychiatric: reports: no symptoms reported Endocrine: reports: no symptoms reported Hematologic/Lymphatic: reports: no symptoms reported Allergic/Immunologic: reports: no symptoms reported All Other Systems: Reviewed and Negative Past History - Adult - PAST MEDICAL HISTORY-ADULT Review of Records: reports: Nursing Assessment Review, Medications Reviewed, Social history reviewed & non-contributory. Major Childhood Illnesses: reports: denies history Cardiovascular: reports: A-Fib, HTN Respiratory: reports: sleep apnea Gastrointestinal: reports: denies history Obstetrical/Gynecological: reports: denies history Genitourinary: reports: denies history Musculoskeletal: reports: denies history Neurological: reports: denies history Psychiatric: reports: denies history Endocrine/Immune: reports: thyroid disorder Other Conditions: reports: denies history - PRIOR SURGERIES/PROCEDURES Surgical/Procedure History: reports: cholecystectomy, hysterectomy, joint replacement - IMMUNIZATION STATUS Childhood Immunizations: See Nurse Assessment Flu Vaccine: See Nurse Assessment - FAMILY HISTORY Family History: reviewed, not pertinent - SOCIAL HISTORY Smoking: denies Physical Exam-General - PHYSICAL EXAM-ADULT Initial Vital Signs Reviewed: Yes - CONSTITUTIONAL General Appearance: appears well, alert. negative: anxious - EYES Eyes: PERRL/EOMI, pink conjunctivae. negative: photophobia - HEAD, EARS, NOSE, MOUTH & THROAT HENMT: normocephalic/atraumatic, moist mucous membranes. negative: angioedema - NECK Neck: supple, normal inspection - RESPIRATORY Respiratory: chest non-tender, lungs clear, normal breath sounds, no pleuratic chest pain, no respiratory distress, no accessory muscle use. negative: crackles, rales, rhonchi, stridor, wheezing - CARDIOVASCULAR Cardiovascular: normal peripheral pulses, tachycardia, irregularly irregular. negative: regular rate, rhythm, bradycardia - MUSCULOSKELETAL Extremity: normal inspection. negative: deformity - SKIN Integumentary: normal color, normal turgor, warm/dry. negative: diaphoresis, jaundice, rash - PSYCHIATRIC Psych/Mental Status: normal mood/affect, oriented x 3. negative: anxious, disheveled Progress - PLAN OF CARE/RESULTS Progress/Plan/Lab Results: Vital Signs - 8 hr 08/07/19 14:30 08/07/19 14:55 08/07/19 15:30 Temperature 98.4 F Pulse Rate 135 H 127 H 119 H Respiratory Rate 22 20 16 Blood Pressure 126/110 153/104 133/110 O2 Sat by Pulse Oximetry 95 95 95 Laboratory Results - last 24 hr 08/07/19 08/07/19 08/07/19 12:37 12:37 12:37 WBC 8.00 RBC 4.34 Hgb 13.1 Hct 40.6 MCV 93.5 MCH 30.2 MCHC 32.3 L RDW Std Deviation 14.3 Plt Count 154 MPV 12.0 H Immature Gran % (Auto) 0.4 Neut % (Auto) 62.0 Lymph % (Auto) 24.4 [place] % (Auto) 11.1 H Eos % (Auto) 1.6 Baso % (Auto) 0.5 Immature Gran # (Auto) 0.03 Neut # (Auto) 4.96 Lymph # (Auto) 1.95 [place] # (Auto) 0.89 H Eos # (Auto) 0.13 Baso # (Auto) 0.04 PT INR PTT (Actin FS) Sodium 137 Potassium 5.0 Chloride 98 Carbon Dioxide 25 Anion Gap 14 BUN 25 H Creatinine 0.7 Estimated GFR/1.73 m2 > 60 BUN/Creatinine Ratio 36 Glucose 97 Calculated Osmolality 278 Calcium 9.4 Total Bilirubin 0.39 AST 26 ALT 15 Alkaline Phosphatase 63 Creatine Kinase 66 Troponin T High Sens Total Protein 7.2 Albumin 3.9 Globulin 3.3 Albumin/Globulin Ratio 1.2 TSH 0.52 Free T4 1.66 08/07/19 08/07/19 12:37 12:37 WBC RBC Hgb Hct MCV MCH MCHC RDW Std Deviation Plt Count MPV Immature Gran % (Auto) Neut % (Auto) Lymph % (Auto) [place] % (Auto) Eos % (Auto) Baso % (Auto) Immature Gran # (Auto) Neut # (Auto) Lymph # (Auto) [place] # (Auto) Eos # (Auto) Baso # (Auto) PT 16.2 H INR 1.28 PTT (Actin FS) 25.7 Sodium Potassium Chloride Carbon Dioxide Anion Gap BUN Creatinine Estimated GFR/1.73 m2 BUN/Creatinine Ratio Glucose Calculated Osmolality Calcium Total Bilirubin AST ALT Alkaline Phosphatase Creatine Kinase Troponin T High Sens 16 Total Protein Albumin Globulin Albumin/Globulin Ratio TSH Free T4 Orders Category Date Time Status Admit - [facility] Routine AdmDCTranf 08/07/19 15:46 Active Activity - Bed Rest with BRP ORDERED Care 08/07/19 15:45 Active Nursing- MD Consult Request ROUTINE Care 08/07/19 15:55 Active Resuscitation Status Routine Care 08/07/19 15:45 Ordered Saline Loc DIRECTED Care 08/07/19 15:45 Active Vital Signs Order Q 4-HR ASSESS Care 08/07/19 15:45 Active Z-Document. for Tele Applied ORDERED Care 08/07/19 15:49 Active Physician/Provider Consults Routine Cons 08/07/19 15:53 Ordered Heart Healthy Diet Diet 08/07/19 15:50 Active NPO Diet 08/08/19 00:01 Active CHEST-1 VIEW [RAD] Stat Exams 08/07/19 12:27 Completed CBC WITH ELECTRONIC DIFF [HEME] Stat Lab 08/07/19 12:37 Completed CK PROFILE [SP CHEM] Stat Lab 08/07/19 12:37 Completed COMPREHENSIVE METABOLIC PANEL [CHEM] Stat Lab 08/07/19 12:37 Completed FREE T4 Stat Lab 08/07/19 12:37 Completed PROTIME WITH INR [COAG] Stat Lab 08/07/19 12:37 Completed PTT [COAG] Stat Lab 08/07/19 12:37 Completed TROPONIN T HIGH SENSITIVITY Stat Lab 08/07/19 12:37 Completed TSH Stat Lab 08/07/19 12:37 Completed 0.9% Sodium Chloride Inj [Ns] 1,000 ml Med 08/07/19 15:45 Discontinued IV 75 mls/hr Acetaminophen [Tylenol] Med 08/07/19 15:45 Discontinued 650 mg PO Q6H PRN PRN Diltiazem 100 mg/Ns [Cardizem 100 mg/Ns] Med 08/07/19 15:00 Discontinued 100 mg in 100 ml IV As Directed mls/hr Diltiazem [Cardizem] Med 08/07/19 12:19 Discontinued 10 mg IV NOW ONE Diltiazem [Cardizem] Med 08/07/19 13:33 Discontinued 10 mg IV NOW ONE Morphine Med 08/07/19 15:45 Discontinued 2 mg IV Q2H PRN PRN Ondansetron [Zofran] Med 08/07/19 15:45 Discontinued 4 mg IV Q4H PRN PRN Oxygen Device Routine Oth 08/07/19 15:49 Completed Telemetry [OM.EQ] Routine Oth 08/07/19 15:45 Active EKG [EKG] Stat Ther 08/07/19 12:00 Draft EKG [EKG] Stat Ther 08/07/19 14:54 Draft Transfer/Admit Order [TRANSFER] Routine Transfer 08/07/19 15:57 Completed Result Diagrams: 08/07/19 12:37 08/07/19 12:37 - REASSESSMENT Reassessment #1 Time Reassessed: 13:00 Status: unchanged Reassessment #2 Status: unchanged - EKG 1 Time of EKG reading by physician:: 12:15 EKG Read and Signed by:: Deborah Maciel EKG Interpretation (*Must complete 3 of following elements*): Abnormal Rate: 145 Rhythm: afib with RVR Prior EKG Comparison: changes noted (Afib w/RVR) 2 Time of EKG reading by physician:: 15:20 EKG Read and Signed by:: Deborah Maciel EKG Interpretation (*Must complete 3 of following elements*): Abnormal Rate: 133 Rhythm: Afib with RVR Prior EKG Comparison: unchanged from prior - XRAY 1 XRAY: Bilateral XRAY Study: Chest Impression: See EMR Report (EXAM: CHEST-1 VIEW 08/07/2019 HISTORY: Palpitations TECHNIQUE: AP portable upright at 1238 COMMENT: There is mild cardiomegaly. The lungs have not changed significantly in appearance since 03/21/2019. IMPRESSION: Stable chest. Electronically signed by Peewee Romero 08/07/2019 12:47 PM 08/07/19 1247 Interpreting Physician: Peewee Romero MD Dictated Date/Time: 08/07/19 1247) - CONSULTS/PCP/HOSPITALIST Notification #1 *Consult/PCP/Hospitalist*: Dr. Naz Johnston, 1500 Time Discussed: 15:16 (Afib w/ RVR s/p 2 bolus Cardizem, will start Cardizem drip ) Reason/Comments: Requested cardiology consult Consult Disposition: Admit #2 Consult: Cardiology (Dr. Arthur) Time Discussed: 15:58 Reason/Comments: Afib with RVR Departure - Departure Date of Disposition Decision: 08/07/19 Time of Disposition Decision: 15:16 DIAGNOSIS: Atrial fibrillation with RVR, Paroxysmal A-fib Disposition: ADMITTED INPATIENT 09 Certified Medical Emergency: Emergent Condition: Stable - Critical Care Note This patient required my direct & personal management of CC.: Yes Total Time (mins): 35 Critical Care Statement: This patient required my direct personal management to treat or rule out processes, the absence of which, could potentiallly result in sudden, clinically significant life or limb threatening deterioration. Attestation - Physician/ SESAR Attestation Patient care was provided by Advanced Practice Provider:: No The physician spent face to face time with patient:: Yes Advanced Practice Provider documentation review:: Supervising physician onsite and consulted in the evaluation and care of this patient. The physician did have a face to face encounter with the patient. This chart was documented by the indicated scribe, (Charo Rodney Scribe) and accurately reflects the services I performed and decisions made by me, Deborah Maciel MD, as attested by the provider's signature.
[2019-08-07] MEDS: BETAPACE PO SCH (20:27)
[2019-08-07] MEDS: CATAPRES PO SCH (20:47)
[2019-08-07] MEDS ORDERED: CELEXA PO SCH (21:00)
--- NOTE | 2019-08-07 22:14 | HISTORY AND PHYSICAL ---
PRIMARY CARE PHYSICIAN: Dr. Dakota Johnston. CHIEF COMPLAINT: Palpitations. HISTORY OF PRESENT ILLNESS: An 79-year-old white female with a complicated past medical history presents for evaluation of above-mentioned symptoms. Current history of present illness began yesterday evening. Patient states while at [employer], she developed increasing shortness of breath. She denied chest discomfort or palpitations at that time. The patient states she rested well overnight. This morning, after eating breakfast she develop acute onset palpitations. The patient's symptoms were consistent with her previous episodes of atrial fibrillation. Over the course of the next hour, patient developed increasing heart rate as well as increasing shortness of breath. She denied chest pain, nausea or vomiting. She had associated diaphoresis. Because of her increasing symptoms, patient presented to the emergency department for further evaluation and management. Upon arrival, a full evaluation was pursued. EKG confirmed atrial fibrillation with rapid ventricular response. Laboratory data suggested no evidence of ischemic mediated disease with a normal CK and troponin. Patient was given 2 doses of diltiazem without improvement. She subsequently was placed on a diltiazem drip. The patient will be admitted to the hospital for full evaluation and management of this condition. Of note, overall patient has been feeling well recently. She does note mild increase in urinary urgency over the course of the last several days. She denies dysuria, hematuria or pyuria. PAST MEDICAL HISTORY: 1. Abnormal skin examination with multiple actinic keratoses. 2. Anxiety/depression. 3. History of appendicitis status post open appendectomy in 1968. 4. Bladder spasms. 5. Status post right-sided cataract removal in 2013. 6. Cholelithiasis status post open cholecystectomy in 1978. 7. History of diverticulitis. 8. Reflux disease. 9. Hypertension. 10. Hypertriglyceridemia. 11. Chronic fatigue. 12. Nonalcoholic fatty liver disease. 13. History of a parathyroid adenoma status post parathyroidectomy. 14. Hyperlipidemia. 15. Hypothyroidism. 16. Impaired fasting glucose. 17. Long-term anticoagulation with Xarelto therapy. 18. Menopause. 19. History of tobacco use. 20. Obstructive sleep apnea. 21. Osteoarthritis. 22. Overweight. 23. Palpitations. 24. Paroxysmal atrial fibrillation. 25. History of right plantar fascitis in February 2016 . 26. History of a small-bowel obstruction in 1987. 27. Uterine leiomyoma status post HUBERT and unilateral oophorectomy in 1968. CURRENT MEDICATIONS: 1. Cardizem CD 180 mg daily. 2. Celexa 20 mg 1/2 tablet daily. 3. Clonidine 0.1 mg twice daily. 4. Hydralazine 10 mg 3 times daily. 5. Levothyroxine 200 mcg daily. 6. Omeprazole 20 mg daily. 7. Sotalol 160 mg twice daily. 8. Telmisartan 80 mg daily. 9. Triamterene hydrochlorothiazide 37.5/25 daily. 10. Xarelto 20 mg daily with supper. ALLERGIES: Patient states she is allergic to Lotrel which causes edema, Crestor which causes reflux, fenofibrate which causes myalgias, Imodium which causes abdominal pain, Lipitor which causes reflux disease, and pravastatin which causes abdominal pain. SOCIAL HISTORY: Patient previously smoked 3/4 of a pack per day for 26 years. She quit in 1981. She denies alcohol or illicit drug use. She is retired from [employer]. She enjoys painting and crocheting. She walks routinely. FAMILY HISTORY: Patient's father passed at age 69 secondary to complications of acute myocardial infarction. Patient's mother passed at age 93 secondary to complications of presumed pancreatic cancer. REVIEW OF SYSTEMS: A 12 point review of systems was performed. Pertinent positives and negatives noted in history present illness. PHYSICAL EXAMINATION: VITAL SIGNS: Temperature 97.6 degrees, heart rate 120, respirations 15, blood pressure is 133/106. GENERAL: Well nourished, well developed, no acute distress. CARDIOVASCULAR: Irregularly irregular. Tachycardic. No significant murmurs, rubs, or gallops. PULMONARY: Clear to auscultation bilaterally. ABDOMEN: Soft, nontender, nondistended. Positive bowel sounds. EXTREMITIES: Moves all extremities well. No significant clubbing, cyanosis, or edema. NEUROLOGIC: Cranial nerves 2-12 grossly intact. Motor and sensory grossly intact. PSYCHOLOGIC: Appropriate. LABORATORY DATA: White blood cell count 8.00, hemoglobin 13.1, hematocrit 40.3, platelet count 154,000. PT 16.2, INR is 1.28, PTT is 25.7. Sodium 137, potassium 5.0, chloride 98, bicarb 25, BUN 25, creatinine 0.7, glucose 97, calcium 9.4, total bilirubin 0.39, total protein 7.2, albumin 3.9, alkaline phosphatase 63, AST 26, ALT 15, CK total 66, troponin 16, TSH 0.52, free T4 is 166. ASSESSMENT AND PLAN: An 79-year-old white female with a complicated past medical history presents for evaluation of palpitations. EKG confirms atrial fibrillation with a rapid ventricular response. Historically, patient has required cardioversion to achieve a normal sinus rhythm. We will manage patient with medication with anticipation cardioversion will be necessary. 1. Admit to ICU/PVC. 2. Atrial fibrillation with rapid ventricular response-we will place patient on a Cardizem drip. She is already anticoagulated. Initial ischemic labs returned negative. We will consult Cardiology for a probable cardioversion. We will continue patient on home dose sotalol therapy. 3. Hypertension-patient has difficult to control disease. We will continue home regimen. With the addition of Cardizem drip, we will hold clonidine and hydralazine for systolic blood pressure less than 140. 4. Reflux disease-we will continue patient on omeprazole therapy. 5. Hyperlipidemia-patient currently is untreated. We will remain aware. 6. Hypothyroidism-we will continue patient on replacement. 7. Fluid, electrolytes, nutrition. We will monitor electrolytes. Normal saline at 75 mL an hour. Cardiac prudent diet with n.p.o. after midnight. 8. Prophylaxis. Patient will be continued on Xarelto therapy. cc: Dakota Johnston MD
[2019-08-07 23:17] LABS: URINE SOURCE CLEAN CATCH
[2019-08-07 23:23] LABS: BILIRUBIN URINE NEGATIVE (NEGATIVE); BLOOD URINE NEGATIVE (NEGATIVE); COLOR YELLOW; GLUCOSE URINE NEGATIVE (NEGATIVE); KETONE URINE NEGATIVE (NEGATIVE); LEUKOCYTES URINE LARGE (NEGATIVE); NITRITE URINE POSITIVE (NEGATIVE); PROTEIN URINE NEGATIVE (NEGATIVE); SP GRAVITY URINE 1.013; TURBIDITY URINE CLEAR (CLEAR); UROBILINOGEN URINE NORMAL (NORMAL)
[2019-08-07 23:25] LABS: UR EPITHELIAL CELLS <10 /HPF (<10); URINE BACTERIA 2+ /HPF; URINE RBC <10 /HPF (<10); URINE WBC 20-40 /HPF (<10)
[2019-08-08 06:26] LABS: IMM GRAN# 0.02 X1000 (0.0-0.04); IMM GRAN% 0.2 % (0.0-0.5); MCV 93.1 FL (81-99); RDW 14.3 % (11.5-14.5)
[2019-08-08 06:35] LABS: BASO# 0.02 X1000 (0.0-0.2); BASO% 0.2 % (0.0-0.8); EOS# 0.15 X1000 (0.0-0.7); EOS% 1.8 % (0.0-10.0); HEMATOCRIT 43.1 % (37.0-47.0); HEMOGLOBIN 14.1 g/dL (12.0-16.0); LYMPH# 2.05 X1000 (1.2-3.4); LYMPH% 24.7 % (20.5-51.1); MCH 30.5 PG (27-31); MCHC 32.7 g/dL (33-37); MONO# 0.81 X1000 (0.11-0.59); MONO% 9.7 % (1.7-9.3); MPV 12.7 FL (7.4-10.4); NEUT# 5.26 X1000 (1.4-6.5); NEUT% 63.4 % (42.2-75.2); PLT 163 X1000 (130-400); RBC 4.63 XMIL (4.2-5.4); WBC 8.31 X1000 (4.8-10.8)
[2019-08-08 06:55] LABS: AGAP 15; ALB/GLOB RATIO 1.2; ALBUMIN 3.8 g/dL (3.5-5.0); ALKALINE PHOSPHATASE 65 U/L (32-104); BUN 17 mg/dL (8-22); CALCIUM 9.3 mg/dL (8.8-10.2); CHLORIDE 99 mmol/L (98-107); COSMO 281; CREATININE 0.6 mg/dL (0.5-0.9); ESTIMATED GFR > 60; GLUCOSE 106 mg/dL (70-104); GOT 16 U/L (10-30); GPT 13 U/L (10-36); POTASSIUM 3.9 mmol/L (3.5-5.1); SODIUM 140 mmol/L (136-145); TCO2 26 mmol/L (25-35); TOTAL BILIRUBIN 0.52 mg/dL (0.20-1.00); TOTAL PROTEIN 7.1 g/dL (6.3-8.3)
[2019-08-08] MEDS ORDERED: PRILOSEC PO SCH (07:00)
[2019-08-08] MEDS ORDERED: SYNTHROID PO SCH (07:00)
[2019-08-08] MEDS ORDERED: ROCEPHIN 1 GM in NS 50 ML IV SCH (08:30)
[2019-08-08] MEDS: BETAPACE PO SCH (08:46)
[2019-08-08] MEDS ORDERED: MICARDIS PO SCH ×2 (09:00)
[2019-08-08] MEDS ORDERED: APRESOLINE PO SCH (09:00)
[2019-08-08] MEDS ORDERED: OMNICEF PO SCH (09:00)
[2019-08-08] MEDS ORDERED: LOVENOX SUBQ ONE ×2 (09:32→09:45)
[2019-08-08] MEDS: CATAPRES PO SCH (09:52)
[2019-08-08] MEDS: APRESOLINE PO SCH ×3 (09:52→17:50)
--- NOTE | 2019-08-08 10:06 | CARDIOLOGY CONSULTATION ---
DATE: 08/08/2019 CHIEF COMPLAINT: Shortness of breath and palpitations. HISTORY OF PRESENT ILLNESS: Ms. Alex is an 79-year-old white female with a past medical history of hypertension, paroxysmal atrial fibrillation normally maintained on Xarelto and sotalol. Yesterday around 9:30 in the morning, she had the onset of symptoms of palpitations, shortness of breath and diaphoresis. This is consistent with her previous episodes that she has had with atrial fibrillation and rapid ventricular response. She reports some increased frequency in urination but she has not had any fevers. No chest pain. No orthopnea. She can recall no changes in her current medications. She otherwise has no complaints. She is doing quite well. She did have a cardioversion that occurred back in March for similar type symptoms. PAST MEDICAL HISTORY: 1. Significant for atrial fibrillation. Previous cardioversions in 2008, 2014, 2016 and then March 2019. Maintained on so sotalol and Xarelto. 2. Coronary artery disease with coronary calcium score of 231, LAD had 152, circumflex 78.6, RCA 0. 3. Hypertension. 4. Hyperlipidemia. 5. Obesity. 6. Reflux disease. 7. Hypothyroidism. 8. Obstructive sleep apnea. SOCIAL HISTORY: She is . No tobacco, no alcohol or illicit drugs. FAMILY HISTORY: Father at 69 due to a heart attack. Mother at 93 secondary to possible pancreatic cancer. REVIEW OF SYSTEMS: A 10 system review of systems is negative except for those things mentioned in HPI. PHYSICAL EXAMINATION: Vitals: Patient is afebrile. Her current heart rates are in the 110s. Blood pressure 129/95. General: She is in no acute distress. HEENT: Oropharynx is moist. Poor dentition. Eye examination with pink conjunctivae, white sclerae. Neck: Examination shows no obvious thyromegaly or thyroid tenderness. Cardiovascular: She is in a irregularly irregular, mildly tachycardic rate. She has no obvious murmurs. She has no S3. She has no lower extremity edema. She has warm and well-perfused extremities. Chest: Clear bilaterally. She has no increased work of breathing. Abdomen: Soft, nontender, nondistended. She has no obvious organomegaly. Skin: Warm and dry throughout without any rashes. Neurological: Moving all extremities well. She has no lateralizing deficits. PERTINENT DATA: Her chest x-ray shows mild cardiomegaly. Her initial EKG on presentation shows what appears to be atrial fibrillation with a couple of aberrantly conducted beats and nonspecific ST-T changes. Her subsequent EKG that occurred on the at 1511 again shows rapid ventricular response, some aberrant conduction of beats. Laboratory data shows a white count 8.3, hematocrit 43, platelet count of 163,000. Sodium 140, potassium 3.9, BUN 17, creatinine 0.6. She did have a large number of leukocytes identified in her UA with a positive nitrite. ASSESSMENT: Ms. Alex is an 79-year-old female with paroxysmal atrial fibrillation who presents in symptomatic atrial fibrillation. PLAN: We will continue on current Xarelto dose as well as sotalol. She will get the Xarelto this evening. She did miss a dose last night but she is approximately 12 hours from the last dose. I will give her some Lovenox. She should not require a transesophageal echo for this at this time. The risks, benefits and alternatives to the procedure have been explained to the patient. I would plan on referring her to electrophysiology as an outpatient given the fact that she just had a cardioversion done around 4 to 5 months ago. We will continue her on her current antihypertensive regimen for the time being. She is on diltiazem 180 mg p.o. daily at home in addition to the sotalol at 160 b.i.d. cc: MD Dakota Sanford MD
[2019-08-08] MEDS ORDERED: DIPRIVAN 1% ONE ×2 (10:48→17:26)
--- NOTE | 2019-08-08 13:07 | CARDIAC CATH REPORT ---
PROCEDURE NAME: - INDICATIONS: Atrial fibrillation. PROCEDURE PERFORMED: DC cardioversion. PROCEDURE IN DETAIL: Ms. Alex was prepped in the usual fashion in her ICU room. She was anesthetized with propofol. After appropriate sedation, she had 1 shock delivered at 120 joules in the synchronized fashion with conversion to sinus rhythm. She tolerated procedure well without any complications. cc: MD Dakota Sanford MD
--- NOTE | 2019-08-08 13:08 | EKG Report ---
Test Performed on : 08/08/2019 12:51:37 PM Test Reason : post cardioversion, normal sinus Blood Pressure : / mmHG Vent. Rate : 054 BPM Atrial Rate : 054 BPM P-R Int : 168 ms QRS Dur : 084 ms QT Int : 496 ms P-R-T Axes : 077 045 098 degrees QTc Int : 470 ms Sinus bradycardia. T wave abnormality, consider lateral ischemia Prolonged QT Abnormal ECG When compared with ECG of 07-AUG-2019 15:11, (Unconfirmed) Sinus rhythm. has replaced Atrial fibrillation. Vent. rate has decreased BY [address] no longer depressed in Inferior leads Nonspecific T wave abnormality, improved in Inferior leads T wave inversion now evident in Lateral leads Confirmed by Niranjan BAJWA, Froilan Mao ([id number]) on 08/10/2019 7:29:15 AM
[2019-08-08 16:21] VITALS: BP 119/73
[2019-08-08] MEDS ORDERED: XARELTO PO SCH (17:00)
[2019-08-08] MEDS ORDERED: ZOFRAN ONE (18:02)
[2019-08-08] MEDS ORDERED: DILAUDID ONE (18:03)
--- NOTE | 2019-08-09 05:06 | DISCHARGE SUMMARY ---
ADMISSION DATE: 08/07/2019 DISCHARGE DATE: 08/08/2019 ADMISSION DIAGNOSIS: Palpitations. DISCHARGE DIAGNOSES: 1. Atrial fibrillation with rapid ventricular response, resolved. 2. Hypertension, present on arrival. 3. Reflux disease, present on arrival. 4. Hyperlipidemia, present on arrival. 5. Hypothyroidism, present on arrival. CONSULTATIONS: Cardiology. Dr. Zaki Khan with Cardiology was consulted for further evaluation and management of atrial fibrillation with rapid ventricular response. PROCEDURES: 1. A chest x-ray performed on 08/07/2019 which revealed a stable chest. 2. Cardioversion was performed on 08/08/[address] Khan with successful return to normal sinus rhythm. HISTORY AND PHYSICAL EXAMINATION: See admission note. DISCHARGE PHYSICAL EXAMINATION: Temperature 98 degrees, heart rate 63, respirations 25, and blood pressure 119/73. General: Well nourished, well developed in no acute distress. Cardiovascular: Regular rate and rhythm. No significant murmurs, rubs, or gallops. Pulmonary: Clear to auscultation bilaterally. Abdomen: Soft, nontender, and nondistended. Positive bowel sounds. Extremities: Moves all extremities well. No significant clubbing, cyanosis, or edema. Dermatologic: Evaluation reveals no evidence of rash. LABORATORY DATA: White blood cell count 8.31, hemoglobin 14.1, hematocrit 43.1, and platelet count 163,000. Sodium 140, potassium 3.9, chloride 99, bicarb 26, BUN 17, creatinine 0.6, glucose 0.6, calcium 9.3, total bilirubin 0.52. Total protein 7.1, albumin 3.8, alkaline phosphatase 65, AST 16, and ALT 13. HOSPITAL COURSE: Patient was admitted as per history and physical examination. Hospital course per condition is as follows. 1. Atrial fibrillation with rapid ventricular response-Upon admission, patient was noted to be in atrial fibrillation with rapid ventricular response. The patient's home medications were continued including sotalol therapy. Cardizem drip was initiated. With this, rate became better controlled averaging in the low 100's. Cardiology was consulted. Historically, patient has required cardioversion to regain normal sinus rhythm. The patient was taken for DC cardioversion on the day of discharge. She tolerated this quite well. The patient was converted back to a normal sinus rhythm. Patient will be continued on her home medications at discharge. Consultation with wind tunnel mechanic will be scheduled in the near future. 2. Hypertension: Patient has longstanding difficult to control disease. She was maintained on home medications while hospitalized successfully. She will be discharged on her previous prescriptions. 3. Reflux disease-Patient's symptoms remained adequately controlled with omeprazole therapy. 4. Hyperlipidemia-Patient currently is untreated. We will continue to follow this as an outpatient. 5. Hypothyroidism-Patient was continued on replacement while hospitalized. DISCHARGE CONDITION: Good. DISPOSITION: Discharge to home. MEDICATIONS: 1. Omeprazole 20 mg daily. 2. Citalopram 20 mg at bedtime. 3. Clonidine 0.1 mg twice daily. 4. Xarelto 20 mg daily with supper. 5. Diltiazem ER 180 mg daily. 6. Tylenol 650 mg every 4 to 6 hours as needed. 7. Hydralazine 10 mg 3 times daily. 8. Telmisartan 80 mg daily. 9. Sotalol 160 mg twice daily. 10. Levothyroxine 200 mcg daily. FOLLOWUP: 1. The patient is to follow up with me in approximately 1 to 2 weeks. 2. Patient is follow up with Dr. Turner/wind tunnel mechanic as arranged. cc: Dakota Johnston MD
== END 2019-08-08 19:10 | disposition home or self-care (01) | DRG 310 ==
LOC: ED 11:51 → ICU 16:04
PROVIDERS: ADMIT Internal Medicine; ATTEND Internal Medicine
PROC: [UNRECOGNIZED PROCEDURE] (2019-08-08 11:00)

== ENCOUNTER 2019-10-12 09:33 | Inpatient (IN) ==
[2019-10-12] MEDS ORDERED: CARDIZEM IV ONE (09:47)
--- NOTE | 2019-10-12 09:58 | Diag Imaging Result Doc PS360 ---
EXAM: CHEST-1 VIEW HISTORY: SOB TECHNIQUE: Single view COMPARISON: 08/07/2019 FINDINGS: The lungs are well expanded. The heart is mildly enlarged. Mild increased interstitial markings. No consolidation. No pleural effusions identified. IMPRESSION: Mild cardiomegaly with mild pulmonary edema. Electronically signed by Joe Herrera 10/12/2019 9:56 AM
[2019-10-12] MEDS ORDERED: LASIX IV ONE ×2 (10:05→11:15)
[2019-10-12] MEDS: CARDIZEM 100 MG/NS 100 MG/100 ML IVPB IV SCH ×2 (10:17→18:15)
[2019-10-12 10:25] LABS: BASO# 0.04 X1000 (0.0-0.2); BASO% 0.5 % (0.0-0.8); EOS# 0.19 X1000 (0.0-0.7); EOS% 2.2 % (0.0-10.0); HEMATOCRIT 40.6 % (37.0-47.0); HEMOGLOBIN 13.4 g/dL (12.0-16.0); LYMPH# 1.78 X1000 (1.2-3.4); MCH 30.3 PG (27-31); MCV 91.9 FL (81-99); MONO# 0.81 X1000 (0.11-0.59); MONO% 9.6 % (1.7-9.3); MPV 12.4 FL (7.4-10.4); NEUT# 5.66 X1000 (1.4-6.5); NEUT% 66.7 % (42.2-75.2); PLT 168 X1000 (130-400); RBC 4.42 XMIL (4.2-5.4); RDW 14.3 % (11.5-14.5); WBC 8.48 X1000 (4.8-10.8)
[2019-10-12 10:35] LABS: INR 1.37; PROTIME 17.2 Seconds (11.0-16.0)
[2019-10-12 10:36] LABS: PTT 31.3 Seconds (22.3-41.8)
[2019-10-12 10:57] LABS: AGAP 15; ALB/GLOB RATIO 1.6; ALBUMIN 4.1 g/dL (3.5-5.0); ALKALINE PHOSPHATASE 69 U/L (32-104); BUN 23 mg/dL (8-22); CALCIUM 9.1 mg/dL (8.8-10.2); CHLORIDE 95 mmol/L (98-107); CK PROFILE 59 U/L (24-173); COSMO 274; CREATININE 0.8 mg/dL (0.5-0.9); ESTIMATED GFR > 60; GLUCOSE 128 mg/dL (70-104); GOT 17 U/L (10-30); GPT 13 U/L (10-36); POTASSIUM 4.7 mmol/L (3.5-5.1); SODIUM 134 mmol/L (136-145); TCO2 24 mmol/L (25-35); TOTAL BILIRUBIN 0.44 mg/dL (0.20-1.00); TOTAL PROTEIN 6.7 g/dL (6.3-8.3)
[2019-10-12] MEDS ORDERED: LASIX ONE (11:18)
--- NOTE | 2019-10-12 11:27 | EKG Report ---
Test Performed on : 10/12/2019 09:46:06 AM Test Reason : AFIB Blood Pressure : / mmHG Vent. Rate : 130 BPM Atrial Rate : 288 BPM P-R Int : 000 ms QRS Dur : 080 ms QT Int : 276 ms P-R-T Axes : 000 023 -35 degrees QTc Int : 406 ms Atrial fibrillation. with rapid ventricular response. with premature ventricular or aberrantly conduc jacob complexes. Inferior infarct , age undetermined Anterolateral infarct , age undetermined Abnormal ECG When compared with ECG of 08-AUG-2019 12:51, Significant changes have occurred Unconfirmed Result
--- NOTE | 2019-10-12 11:34 | PROVIDER DOCUMENTATION ---
This chart was entered by Marysol Leiva Scribe, acting as scribe for Redd Chapman MD. HPI-Cardiac General - General Chief Complaint: Weakness Stated Complaint: IN A- FIB Time Seen by Provider: 10/12/19 09:34 Source: patient Allergies/Adverse Reactions: Patient Allergies Allergy/AdvReac Type Severity Reaction Status Date / Time amlodipine Allergy Unknown Verified 10/12/19 09:51 atorvastatin [From Lipitor] Allergy Unknown Verified 10/12/19 09:51 fenofibrate Allergy Unknown Verified 10/12/19 09:51 loperamide [From Imodium A-D] Allergy Unknown Verified 10/12/19 09:51 rosuvastatin [From Crestor] Allergy Unknown Verified 10/12/19 09:51 Home Medications: Home Medication List Medication Instructions Recorded Confirmed Last Taken Type Citalopram Hydrobromide [Celexa] 20 mg PO QHS 12/31/14 10/12/19 10/11/19 History Clonidine [Catapres] 0.1 mg PO BID 12/31/14 10/12/19 10/11/19 History Rivaroxaban [Xarelto] 20 mg PO WSUPPER #90 tablet 01/21/15 10/12/19 10/11/19 Rx Diltiazem HCl [Cartia Xt] 180 mg PO QAM 10/13/18 10/12/19 10/11/19 History Acetaminophen [Tylenol] 650 mg PO Q4H PRN PRN tab 10/14/18 10/12/19 10/11/19 Rx Hydralazine [Apresoline] 10 mg PO TID tab 10/14/18 10/12/19 10/11/19 Rx Telmisartan 80 mg PO DAILY 03/22/19 10/12/19 10/11/19 History Levothyroxine [Synthroid] 200 microgm PO DAILY@0700 #90 tab 03/23/19 10/12/19 10/11/19 Rx Sotalol [Betapace] 160 mg PO BID #60 tab 03/23/19 10/12/19 10/11/19 Rx Omeprazole [Prilosec] 20 mg PO DAILY@0700 cap 08/08/19 10/12/19 10/11/19 Rx - History of Present Illness-Cardiac Nature of Presenting Problem: 79 yowf presents to the ed with c/o being in afib. she reports onset this am and with onset she has felt sob, diaphoresis and fluttering in chest. pt has hx of ashish and reports this is the same sx when it happens. Location: reports: other (chest dluttering) Quality of Pain: reports: other (denies pain but has fluttering in chest) Onset/Duration: this morning Timing: still present, constant Context/Activities at Onset: reports: light activity Modifying Factors: worse with: nothing Palpitation Quality: other (fluttering in afib) History of arrythmia: reports: A-Fib Recent use of:: reports: caffeine Nitro Today/Relief: reports: no nitro taken today Aspirin Treatment Today: reports: no aspirin today Prior Chest Pain/Cardiac Workup: reports: other (hx of afib) Associated Symptoms: reports: diaphoresis, shortness of breath. denies: abdominal pain, back pain, dizziness, fever/chills, nausea, vomiting Similar Symptoms Previously?: Yes (hx of afib) Recently Seen Here or By Another Healthcare Provider: No Review of Systems - Adult - REVIEW OF SYSTEMS - ADULT Constitutional: denies: chills, fever Eyes: reports: no symptoms reported Ears, Nose, Mouth & Throat: reports: no symptoms reported Cardiovascular: reports: see HPI, palpitations. denies: chest pain, syncope Respiratory: reports: see HPI, shortness of breath. denies: cough, wheezing Gastrointestinal: denies: diarrhea, nausea, vomiting Genitourinary: reports: no symptoms reported Musculoskeletal: reports: no symptoms reported Integumentary: reports: no symptoms reported Neurological: denies: dizziness/vertigo, headache/migraines Psychiatric: reports: no symptoms reported Endocrine: reports: no symptoms reported Hematologic/Lymphatic: reports: no symptoms reported Allergic/Immunologic: reports: no symptoms reported All Other Systems: Reviewed and Negative Past History - Adult - PAST MEDICAL HISTORY-ADULT Review of Records: reports: Old Records Reviewed, Nursing Assessment Review, Medications Reviewed, Social history reviewed & non-contributory. Major Childhood Illnesses: reports: denies history Cardiovascular: reports: A-Fib, HTN Respiratory: reports: sleep apnea Gastrointestinal: reports: denies history Obstetrical/Gynecological: reports: denies history Genitourinary: reports: denies history Musculoskeletal: reports: denies history Neurological: reports: denies history Psychiatric: reports: denies history Endocrine/Immune: reports: thyroid disorder Other Conditions: reports: denies history - PRIOR SURGERIES/PROCEDURES Surgical/Procedure History: reports: cholecystectomy, hysterectomy, joint replacement - IMMUNIZATION STATUS Childhood Immunizations: See Nurse Assessment Flu Vaccine: See Nurse Assessment - FAMILY HISTORY Family History: reviewed, not pertinent - SOCIAL HISTORY Smoking: denies Substance Use: denies Living Situation: family Physical Exam-General - PHYSICAL EXAM-ADULT Initial Vital Signs Reviewed: Yes - CONSTITUTIONAL General Appearance: appears well, alert, no apparent distress (nontoxic in appearance), obese - EYES Eyes: PERRL/EOMI, pink conjunctivae - HEAD, EARS, NOSE, MOUTH & THROAT HENMT: moist mucous membranes - NECK Neck: non-tender, full range of motion, supple - RESPIRATORY Respiratory: chest non-tender, lungs clear, normal breath sounds - CARDIOVASCULAR Cardiovascular: irregularly irregular (114) - GASTROINTESTINAL (ABDOMEN) Abdominal Exam: normal bowel sounds, non tender, soft - GENITOURINARY Female Genitalia/Pelvic Exam: deferred Rectal Exam: deferred Hemoccult Exam: deferred - LYMPHATIC Lymphatic: no adenopathy - MUSCULOSKELETAL Back Exam: no CVA tenderness, no vertebral tenderness Extremity: normal range of motion, non-tender, normal gait, normal inspection - SKIN Integumentary: normal color, normal turgor, diaphoresis - NEUROLOGIC Neurologic: grossly normal - PSYCHIATRIC Psych/Mental Status: normal mood/affect, normal thought content, normal thought process, oriented x 3 Progress - PLAN OF CARE/RESULTS Progress/Plan/Lab Results: Vital Signs - 8 hr 10/12/19 09:37 Temperature 98.4 F Pulse Rate 114 H Respiratory Rate 20 Blood Pressure 145/81 O2 Sat by Pulse Oximetry 96 Laboratory Results - last 24 hr 10/12/19 10/12/19 10/12/19 10:08 10:08 10:08 WBC RBC Hgb Hct MCV MCH MCHC RDW Std Deviation Plt Count MPV Immature Gran % (Auto) Neut % (Auto) Lymph % (Auto) Mckean % (Auto) Eos % (Auto) Baso % (Auto) Immature Gran # (Auto) Neut # (Auto) Lymph # (Auto) Mckean # (Auto) Eos # (Auto) Baso # (Auto) PT INR PTT (Actin FS) Sodium 134 L Potassium 4.7 Chloride 95 L Carbon Dioxide 24 L Anion Gap 15 BUN 23 H Creatinine 0.8 Estimated GFR/1.73 m2 > 60 BUN/Creatinine Ratio 29 Glucose 128 H Calculated Osmolality 274 Calcium 9.1 Total Bilirubin 0.44 AST 17 ALT 13 Alkaline Phosphatase 69 Creatine Kinase 59 Troponin T High Sens 12 Acd-F-Krrydrmowmp Pept 503 H Total Protein 6.7 Albumin 4.1 Globulin 2.6 Albumin/Globulin Ratio 1.6 10/12/19 10/12/19 10:08 10:08 WBC 8.48 RBC 4.42 Hgb 13.4 Hct 40.6 MCV 91.9 MCH 30.3 MCHC 33.0 RDW Std Deviation 14.3 Plt Count 168 MPV 12.4 H Immature Gran % (Auto) 0.0 Neut % (Auto) 66.7 Lymph % (Auto) 21.0 Mckean % (Auto) 9.6 H Eos % (Auto) 2.2 Baso % (Auto) 0.5 Immature Gran # (Auto) 0.00 Neut # (Auto) 5.66 Lymph # (Auto) 1.78 Mckean # (Auto) 0.81 H Eos # (Auto) 0.19 Baso # (Auto) 0.04 PT 17.2 H INR 1.37 PTT (Actin FS) 31.3 Sodium Potassium Chloride Carbon Dioxide Anion Gap BUN Creatinine Estimated GFR/1.73 m2 BUN/Creatinine Ratio Glucose Calculated Osmolality Calcium Total Bilirubin AST ALT Alkaline Phosphatase Creatine Kinase Troponin T High Sens Oxf-Q-Aitlzxhdfwm Pept Total Protein Albumin Globulin Albumin/Globulin Ratio Orders Category Date Time Status Admit - [facility] Routine AdmDCTranf 10/12/19 11:24 Active Call Admitting on Arrival AT ADMISSION Care 10/12/19 11:24 Active Cardiac Monitoring DIRECTED Care 10/12/19 09:44 Active NEWS Score 2-4:Order NEWS Lactate Series NOW Care 10/12/19 09:39 Active Nursing- MD Consult Request ROUTINE Care 10/12/19 11:26 Active Oxygen Therapy- ED Nursing DIRECTED Care 10/12/19 09:44 Active Saline Loc NOW Care 10/12/19 09:44 Active Z-Document. for Tele Applied ORDERED Care 10/12/19 11:25 Active Physician/Provider Consults Routine Cons 10/12/19 11:25 Ordered NPO Except MEDICATIONS Diet 10/12/19 11:23 Active CHEST-1 VIEW [RAD] Stat Exams 10/12/19 09:44 Completed CBC WITH ELECTRONIC DIFF [HEME] Stat Lab 10/12/19 10:08 Completed CK PROFILE [SP CHEM] Stat Lab 10/12/19 10:08 Completed COMPREHENSIVE METABOLIC PANEL [CHEM] Stat Lab 10/12/19 10:08 Completed PRO B-NATRIURETIC PEPTIDE Stat Lab 10/12/19 10:08 Completed PROTIME WITH INR [COAG] Stat Lab 10/12/19 10:08 Completed PTT [COAG] Stat Lab 10/12/19 10:08 Completed TROPONIN T HIGH SENSITIVITY Stat Lab 10/12/19 10:08 Completed Diltiazem 100 mg/Ns [Cardizem 100 mg/Ns] Med 10/12/19 10:00 Active 100 mg in 100 ml IV As Directed mls/hr Diltiazem [Cardizem] Med 10/12/19 09:47 Discontinued 15 mg IV NOW ONE Furosemide [Lasix] Med 10/12/19 11:18 Discontinued 20 mg .ROUTE .STK-MED ONE Furosemide [Lasix] Med 10/12/19 11:15 Discontinued 20 mg IV NOW ONE CP/SOB/Palp >45 yrs of Age Stat Oth 10/12/19 09:44 Ordered Telemetry [OM.EQ] Routine Oth 10/12/19 11:24 Active EKG [EKG] Stat Ther 10/12/19 09:34 Draft Transfer/Admit Order [TRANSFER] Routine Transfer 10/12/19 11:26 Ordered Result Diagrams: 10/12/19 10:08 10/12/19 10:08 - REASSESSMENT Reassessment #1 Time Reassessed: 11:23 Status: unchanged (pt is resting in bed) - EKG 1 Time of EKG reading by physician:: 09:46 EKG Read and Signed by:: Redd Chapman EKG Interpretation (*Must complete 3 of following elements*): Abnormal Rate: 130 Rhythm: afib with rvr w/ premature ventricular or aberrantly conducted complexes Philipp: normal QRS: normal DE Interval: normal ST Wave: normal Comments: inferior/anterolateral infarct, age undetermined - XRAY 1 XRAY: Bilateral XRAY Study: Chest Impression: See EMR Report (FINDINGS: The lungs are well expanded. The heart is mildly enlarged. Mild increased interstitial markings. No consolidation. No pleural effusions identified. IMPRESSION: Mild cardiomegaly with mild pulmonary edema. Electronically signed by Joeamberly Herrera 10/12/2019 9:56 AM) - CONSULTS/PCP/HOSPITALIST Notification #1 *Consult/PCP/Hospitalist*: dr johnston PMD Time Discussed: 11:23 (admit to PVC bed) Consult Disposition: Admit #2 Consult: cardiology dr sommers Time Discussed: 11:33 (will consult as needed) Reason/Comments: phone consult Departure - Departure Date of Disposition Decision: 10/12/19 Time of Disposition Decision: 11:34 DIAGNOSIS: Atrial fibrillation with rapid ventricular response Disposition: ADMITTED INPATIENT 09 Certified Medical Emergency: Emergent Condition: Fair Referrals and Follow-Ups: Dakota Johnston MD [Primary Care Provider] - - Critical Care Note This patient required my direct & personal management of CC.: Yes Total Time (mins): 45 Critical Care Statement: This patient required my direct personal management to treat or rule out processes, the absence of which, could potentiallly result in sudden, clinically significant life or limb threatening deterioration. Attestation - Physician/ SESAR Attestation Patient care was provided by Advanced Practice Provider:: No The physician spent face to face time with patient:: Yes Advanced Practice Provider documentation review:: Supervising physician onsite and consulted in the evaluation and care of this patient. The physician did have a face to face encounter with the patient. This chart was documented by the indicated scribe, (Marysol Leiva Scribe) and accurately reflects the services I performed and decisions made by me, Redd Chapman MD, as attested by the provider's signature.
[2019-10-12 12:44] LABS: URINE SOURCE CLEAN CATCH
[2019-10-12 12:48] LABS: BILIRUBIN URINE NEGATIVE (NEGATIVE); BLOOD URINE NEGATIVE (NEGATIVE); COLOR YELLOW; GLUCOSE URINE NEGATIVE (NEGATIVE); KETONE URINE NEGATIVE (NEGATIVE); LEUKOCYTES URINE NEGATIVE (NEGATIVE); NITRITE URINE NEGATIVE (NEGATIVE); PROTEIN URINE NEGATIVE (NEGATIVE); TURBIDITY URINE CLEAR (CLEAR); UROBILINOGEN URINE NORMAL (NORMAL)
[2019-10-12 12:52] LABS: UR EPITHELIAL CELLS <10 /HPF (<10); URINE BACTERIA 4+ /HPF; URINE RBC <10 /HPF (<10); URINE WBC <10 /HPF (<10)
--- NOTE | 2019-10-12 14:11 | CARDIOLOGY CONSULTATION ---
DATE: 10/12/2019 HISTORY OF PRESENT ILLNESS: An 79-year-old lady with history of paroxysmal atrial fibrillation on multiple medications in addition to having undergone cardioversion multiple times, came to the emergency room. She had cardioversion in July. This morning she had palpitations which were significant. Came to the emergency room. Electrocardiogram revealed atrial fibrillation with rapid ventricular rate. Heart rate into the 40s. She was started on a Cardizem drip. She has been taking her medications regularly. Does not complain of chest pain suggestive of angina. There is no syncope. She says she feels cold at the present time, but no fevers or chills. There is no history of cough or expectoration. REVIEW OF SYSTEM: A 14-point review of systems was done. GI System: There is no history of nausea, vomiting, diarrhea. There is no history of hematemesis or melena. Central nervous system: No focal weakness to suggest a CVA or TIA. System: There is no dysuria or hematuria. PAST MEDICAL HISTORY: 1. Atrial fibrillation status post cardioversion in 2008, 2014, 2016, 2018 and July 2019. She has an appointment to see the electrophysiology services in [facility]. 2. Anticoagulation therapy. 3. Coronary atherosclerosis. Last stress test last year was unremarkable. She had a total calcium score of 231. 4. Bradycardia. 5. Hypertension. 6. Prediabetes. 7. Hypothyroid. 8. Gastroesophageal reflux disease. 9. Obesity. 10. Sleep apnea. HOME MEDICATIONS: Include Cartia XT 180 mg a day, clonidine 0.1 mg b.i.d., Xarelto 20 mg a day, Celexa 20, levothyroxine 200, sotalol 160 mg b.i.d., telmisartan uses CPAP. ALLERGIES: She is allergic to fenofibrate, atorvastatin, amlodipine, loperamide, rosuvastatin. PHYSICAL EXAMINATION: Vital Signs: Blood pressure was 125/93. Cardiovascular System: First and second heart sounds were heard. There was no S3 gallop. Respiratory System: Normal air entry. There are no crepitations or rhonchi. Abdomen: Soft, nontender. There was no guarding or rigidity. Bowel sounds were heard. Central nervous system: Alert and was moving all 4 extremities. Extremities: Examination of extremities revealed no pedal edema. HEENT: Atraumatic, normocephalic. Pupils were equal, round, reacting to light. ASSESSMENT: Ms. Trent Alex is an 79-year-old, lady, who is admitted with palpitations, noted to be in atrial fibrillation with rapid ventricular rate. She had breakfast this morning. She has been started on Cardizem drip. PLAN: 1. We will continue with her home medications of sotalol 160 b.i.d. 2. We will plan for cardioversion in the morning and change her to p.o. Cardizem after cardioversion, which she had been taking at home. 3. Anticoagulation therapy. Continue with Xarelto. 4. Her lab work: We will check a thyroid profile, as well as BMP and CBC. 5. Hypertension. Continue with her home medications. 6. Hypothyroidism. Continue with her levothyroxine. 7. Her stress test was unremarkable a year back. She does not complain of chest pain. I have not made any changes so far in magnesium. We will check. Cardiac enzymes negative. Thank you for the consult. cc: MD Dakota Olivera MD
[2019-10-12] MEDS ORDERED: TYLENOL PO PRN ×2 (14:14→14:16)
[2019-10-12] MEDS ORDERED: XARELTO PO SCH ×2 (17:00)
--- NOTE | 2019-10-12 17:16 | HISTORY AND PHYSICAL ---
PRIMARY CARE PHYSICIAN: Dr. Dakota Johnsotn. CHIEF COMPLAINT: Palpitations. HISTORY OF PRESENT ILLNESS: An 79-year-old white female with a complicated past medical history presents for evaluation of above-mentioned symptoms. Pertinent history of present illness began this morning. At approximately 8:30 after eating breakfast the patient developed palpitations. Symptoms were very consistent with her previous episodes of atrial fibrillation. The patient had just taken her medications. She denies chest pains, shortness of breath, nausea, or vomiting. The patient contacted my office and subsequently Dr. Turner's office. Unfortunately, patient did not achieve significant improvement with attempts to manage this at home. She presented to the emergency department. Patient was again found to be in atrial fibrillation with right rapid ventricular response. She was treated with diltiazem followed by diltiazem drip. The patient will be admitted to the hospital for full evaluation and management. Of note, patient has had multiple admissions requiring cardioversion for atrial fibrillation with rapid ventricular response. A an electrophysiologic appointment was scheduled for next week. PAST MEDICAL HISTORY: 1. Abnormal skin examination with multiple actinic keratoses. 2. Anxiety/depression. 3. History of appendicitis, status post open after appendectomy in 1968. 4. Bladder spasms. 5. Status post right-sided cataract removal in 2013. 6. Cholelithiasis, status post open cholecystectomy in 1978. 7. History of diverticulitis. 8. Reflux disease. 9. Hypertension. 10. Hypertriglyceridemia. 11. Chronic fatigue. 12. Nonalcoholic fatty liver disease. 13. History of a parathyroid adenoma, status post parathyroidectomy. 14. Hyperlipidemia. 15. Hypothyroidism. 16. Impaired fasting glucose. 17. Long-term anticoagulation with Xarelto. 18. Menopause. 19. History of tobacco use. 20. Obstructive sleep apnea. 21. Osteoarthritis. 22. Overweight. 23. Palpitations. 24. Paroxysmal atrial fibrillation, 25. History of right plantar fasciitis in February 2016. 26. History of a small-bowel obstruction in 1987. 27. Uterine leiomyoma status post HUBERT and unilateral oophorectomy in 1968. CURRENT MEDICATIONS: 1. Cardizem CD 180 mg daily. 2. Celexa 20 mg 1/2 of a tablet daily. 3. Clonidine 0.1 mg twice daily. 4. Hydralazine 10 mg 3 times daily. 5. Levothyroxine 200 mcg daily. 6. Omeprazole 20 mg daily. 7. Sotalol 160 mg twice daily. 8. Telmisartan 80 mg daily. 9. Triamterene and hydrochlorothiazide 37.5/25 daily. 10. Xarelto 20 mg daily with supper. ALLERGIES: Patient states she is allergic to oral Lotrel which causes edema, Crestor which causes reflux, fenofibrate which causes myalgias, Imodium which causes abdominal pain, Lipitor which causes reflux disease, and pravastatin which causes abdominal pain. SOCIAL HISTORY: Patient previously smoked 3/4 of a pack per day for 26 years. She quit in 1981. She denies alcohol or illicit drug use. She is retired from [employer]. She enjoys painting and crocheting. She walks routinely. FAMILY HISTORY: Patient's father passed at age 69 secondary to complications of an acute myocardial infarction. Patient's mother passed at age 93 secondary to complications of presumed pancreatic cancer. REVIEW OF SYSTEMS: A 12 point review of systems was performed. Pertinent positives and negatives noted in history of present illness. PHYSICAL EXAMINATION: VITAL SIGNS: Temperature 98.6 degrees, heart rate 118, respirations 18, blood pressure is 114/67. GENERAL: Well nourished, well developed, no acute distress. HEENT: Normocephalic, atraumatic. Pupils equal, round, reactive to light. Extraocular muscles intact. Sclerae anicteric. Gordon conjunctivae. Oral and nasopharynx clear without exudate. NECK: Supple. No lymphadenopathy. No thyromegaly. No bruits auscultated. CARDIOVASCULAR: Irregularly irregular. Tachycardic. No significant murmurs, rubs, or gallops. PULMONARY: Clear to auscultation bilaterally. ABDOMEN: Soft, nontender, nondistended. Positive bowel sounds. EXTREMITIES: Moves all extremities well. No significant clubbing, cyanosis, or edema. DERMATOLOGIC: Evaluation reveals no evidence of rash. LABORATORY DATA: White blood cell count 8.48, hemoglobin 13.4, hematocrit 40.6, platelet count 168,000, PT 17.2, INR is 1.37, PTT is 31.3. Sodium 134, potassium 4.7, chloride 95, bicarb 24, BUN 23, creatinine 0.8, glucose 128, calcium 9.1. Total bilirubin 0.44, total protein 6.7, albumin 4.1, alkaline phosphatase 69, AST 17, ALT 13, CK total 59, troponin 12. TSH 0.28. Chest x-ray revealed mild cardiomegaly with mild pulmonary edema. ASSESSMENT AND PLAN: An 79-year-old white female with past medical history as noted presents for evaluation of atrial fibrillation with rapid ventricular response. Unfortunately, she has experienced this on multiple occasions. She has required cardioversion on the vast majority of these. We will admit patient to the hospital for full evaluation and management. 1. Admit to the PVC unit. 2. Atrial fibrillation with rapid ventricular response-the patient was placed on a Cardizem drip in the emergency department. This will be continued. We will continue sotalol therapy. We will consult Dr. Arthur. I anticipate a cardioversion in the a.m. As described above, patient does have an appointment scheduled with electrophysiology in the near future. 3. Hypertension-patient has difficult to control disease. We will continue her home medical regimen with the addition of Cardizem drip. 4. Reflux disease-we will continue patient on omeprazole therapy. 5. Hyperlipidemia-unfortunately, patient is unable to be treated. She has difficulty tolerating medical intervention. We will remain aware. 6. Hypothyroidism-we will continue patient on replacement. TSH is acceptable. 7. Fluid, electrolytes, nutrition. We will monitor electrolytes. Saline lock IV. Cardiac prudent diet. 8. Prophylaxis. Patient will be continued on Xarelto therapy. cc: Dakota Johnston MD
[2019-10-12] MEDS: APRESOLINE PO SCH (18:09)
[2019-10-12] MEDS: BETAPACE PO SCH (20:20)
[2019-10-12] MEDS: CATAPRES PO SCH (20:20)
[2019-10-12] MEDS ORDERED: BETAPACE PO SCH (21:00)
[2019-10-12] MEDS ORDERED: CELEXA PO SCH (21:00)
[2019-10-13] MEDS: CARDIZEM 100 MG/NS 100 MG/100 ML IVPB IV SCH ×2 (01:05→07:49)
--- NOTE | 2019-10-13 06:35 | EKG Report ---
Test Performed on : 10/13/2019 06:13:49 AM Test Reason : afib with rvr Blood Pressure : / mmHG Vent. Rate : 100 BPM Atrial Rate : 125 BPM P-R Int : 000 ms QRS Dur : 078 ms QT Int : 414 ms P-R-T Axes : 000 042 246 degrees QTc Int : 534 ms Atrial fibrillation. Low voltage QRS ST & T wave abnormality, consider inferior ischemia Abnormal ECG When compared with ECG of 12-OCT-2019 09:46, (Unconfirmed) Criteria for Anterior infarct are no longer present Criteria for Anterolateral infarct are no longer present Criteria for Inferior infarct are no longer present Non-specific change in ST segment in Inferior leads Confirmed by Sebastian BAJWA, Isidro Diaz ([id number]) on 10/13/2019 9:11:31 AM
[2019-10-13] MEDS ORDERED: PRILOSEC PO SCH (07:00)
[2019-10-13] MEDS ORDERED: SYNTHROID PO SCH (07:00)
[2019-10-13] MEDS: CATAPRES PO SCH (08:25)
[2019-10-13] MEDS: APRESOLINE PO SCH ×2 (08:25→14:21)
[2019-10-13] MEDS: BETAPACE PO SCH (08:26)
[2019-10-13] MEDS ORDERED: CARDIZEM CD PO SCH (09:00)
[2019-10-13] MEDS ORDERED: MICARDIS PO SCH (09:00)
[2019-10-13] MEDS ORDERED: DIPRIVAN 1% ONE (12:11)
[2019-10-13] MEDS ORDERED: ANESTHESIA PB SET 88 IN 5742 ONE (12:21)
[2019-10-13] MEDS ORDERED: NS 1,000 ML ONE (12:21)
[2019-10-13] MEDS ORDERED: CLAVE TWINSITE 32 IN 11959 ONE (12:21)
--- NOTE | 2019-10-13 13:14 | CARDIAC CATH REPORT ---
DATE: 10/13/2019 PROCEDURE: Direct current cardioversion. INDICATION: Persistent atrial fibrillation. HISTORY: An 79-year-old female, patient of mine, who has had previous bouts of atrial fibrillation this time presented with acute symptomatic paroxysmal atrial fibrillation. Dr. Arthur saw the patient in consultation and recommended cardioversion. We agreed that it was reasonable and the patient was brought to the cardiac environmental laboratory technician for that procedure. DESCRIPTION OF PROCEDURE: The patient was given IV anesthesia under the supervision of the Anesthesia Services. The pads were positioned in the anterior and posterior location. The patient has been taking her anticoagulant regularly without discontinuation. The risk for thromboembolic event was deemed to be very low. The patient received first a single synchronized countershock to the chest cage consisting of 75 chen per second. She converted initially from atrial fibrillation into atrial flutter. Then, we applied a second synchronized countershock to the chest cage consisting of another 75 chen per second. This time she converted from atrial flutter into sinus rhythm with sinus bradycardia. The rate gradually stabilized at about 48 beats per minute. The patient woke up from the effects of anesthesia without any obvious deficit. SUMMARY: In summary there was successful cardioversion from atrial fibrillation into sinus bradycardia. RECOMMENDATION: The patient needs to continue the present medical therapy and she has also been arranged to have a consultation with the Electrophysiology Services in [facility] for a possible ablation. The patient may be discharged home later on today if deemed appropriate by Dr. Dakota Johnston. cc: MD Dakota Aguilar MD
[2019-10-13] MEDS ORDERED: MACROBID PO ONE (14:48)
--- NOTE | 2019-10-13 15:11 | DISCHARGE SUMMARY ---
ADMISSION DATE: 10/12/2019 DISCHARGE DATE: 10/13/2019 ADMISSION DIAGNOSIS: Palpitations. DISCHARGE DIAGNOSES: 1. Atrial fibrillation with rapid ventricular response. 2. Urinary tract infection. 3. Hypertension, present on arrival. 4. Reflux disease, present on arrival. 5. Hyperlipidemia, present on arrival. 6. Hypothyroidism, present on arrival. CONSULTATIONS: Dr. Arthur/Dr. Turner with Cardiology were consulted for further evaluation and management of atrial fibrillation with rapid ventricular response. PROCEDURES: 1. Chest x-ray was performed on 10/12/2019 which revealed mild cardiomegaly with mild pulmonary edema. 2. Cardioversion was performed on 10/13/2019. HISTORY AND PHYSICAL EXAMINATION: See admit note. PHYSICAL EXAMINATION PRIOR TO DISCHARGE: Vital Signs: Temperature 97.7 degrees, heart rate 78, respirations 22, blood pressure is 109/52. General: Well nourished, well developed, no acute distress. Cardiovascular: Regular rate and rhythm. No significant murmurs, rubs, or gallops. Pulmonary: Clear to auscultation bilaterally. Abdomen: Soft, nontender, nondistended. Positive bowel sounds. Extremities: Moves all extremities well. No significant clubbing, cyanosis, or edema. Dermatologic: Evaluation reveals no evidence of rash. LABORATORY DATA PRIOR TO DISCHARGE: None. HOSPITAL COURSE: Patient was admitted as per history and physical examination. Hospital course per condition is as follows. 1. Atrial fibrillation with rapid ventricular response: Upon admission, the patient was noted to have a heart rate in the 140 to 150 range. The patient was continued on sotalol therapy. Cardizem drip was added. Cardiology was consulted. Throughout the night, the patient's rate remained borderline controlled. On the day of discharge, the patient was taken for cardioversion. She tolerated this quite well. Post cardioversion, the patient remained in a sinus-generated rhythm. The patient will be discharged to home on her previous home medications. She has an appointment with an museum host/hostess in the near future. The patient likely would benefit from atrial fibrillation ablation. 2. Urinary tract infection: Upon admission, the patient's urinalysis was slightly abnormal. The patient's urine culture grew a gram-negative dina. The patient will be discharged on Macrobid therapy. This will also be followed. 3. Hypertension: The patient has longstanding, difficult to control disease. She was continued on home medications with the exception of changing Cardizem CD to a Cardizem drip. Blood pressures remained reasonably controlled. The patient will transition back to her home medical regimen at time of discharge. 4. Reflux disease: The patient remained adequately controlled with omeprazole therapy. We will resume pantoprazole therapy as she previously was prescribed as an outpatient. 5. Hyperlipidemia. The patient has had difficulty tolerating medical intervention in the past. We will remain aware and follow this as an outpatient. 6. Hypothyroidism: The patient was continued on her home medical regimen. TSH was acceptable. DISCHARGE CONDITION: Stable. DISPOSITION: Discharge to home. MEDICATIONS: 1. Acetaminophen 650 mg every 4 hours as needed. 2. Citalopram 20 mg at bedtime. 3. Clonidine 0.1 mg twice daily. 4. Hydralazine 10 mg 3 times daily. 5. Levothyroxine 200 mcg daily. 6. Xarelto 20 mg with supper. 7. Sotalol 160 mg twice daily. 8. Telmisartan 80 mg daily. 9. Cardizem CD 180 mg daily. 10. Pantoprazole 40 mg daily. 11. Triamterene/hydrochlorothiazide 37.5/25 daily. 12. Macrobid 100 mg twice daily for 7 days. FOLLOWUP: The patient is to follow with me in approximately 1 to 2 weeks. cc: Dakota Johnston MD
[2019-10-13 15:21] VITALS: BP 135/53
--- NOTE | 2019-10-13 15:25 | EKG Report ---
Test Performed on : 10/13/2019 2:55:17 PM Test Reason : post CVN Blood Pressure : / mmHG Vent. Rate : 058 BPM Atrial Rate : 058 BPM P-R Int : 188 ms QRS Dur : 088 ms QT Int : 490 ms P-R-T Axes : 055 054 106 degrees QTc Int : 481 ms Sinus bradycardia. T wave abnormality, consider lateral ischemia Prolonged QT Abnormal ECG When compared with ECG of 13-OCT-2019 06:13, Sinus rhythm. has replaced Atrial fibrillation. Vent. rate has decreased BY 42 BPM Non-specific change in ST segment in Inferior leads Nonspecific T wave abnormality has replaced inverted T waves in Inferior leads QT has shortened Confirmed by Sebastian BAJWA, Isidro Diaz ([id number]) on 10/17/2019 9:37:23 AM
== END 2019-10-13 15:53 | disposition home or self-care (01) | DRG 309 ==
LOC: ED 09:33 → 2N 11:31
PROVIDERS: ADMIT Internal Medicine; ATTEND Internal Medicine

== ENCOUNTER 2019-10-22 12:24 | Inpatient (IN) ==
--- NOTE | 2019-10-22 12:42 | Diag Imaging Result Doc PS360 ---
EXAM: CHEST-1 VIEW 10/22/2019 HISTORY: a-fib TECHNIQUE: AP portable upright at 1235 COMMENT: There is ill-defined opacity in the lingula partially obscuring the left heart border. This is slightly worse than on 10/12/2019. Otherwise the appearance the chest has not changed significantly. The heart size is slightly enlarged. IMPRESSION: Borderline cardiomegaly and pulmonary edema versus pneumonia. Electronically signed by Peewee Romero 10/22/2019 12:40 PM
[2019-10-22 13:33] LABS: BASO# 0.03 X1000 (0.0-0.2); BASO% 0.4 % (0.0-0.8); EOS# 0.14 X1000 (0.0-0.7); EOS% 1.8 % (0.0-10.0); HEMATOCRIT 40.6 % (37.0-47.0); HEMOGLOBIN 13.2 g/dL (12.0-16.0); IMM GRAN# 0.02 X1000 (0.0-0.04); IMM GRAN% 0.3 % (0.0-0.5); LYMPH# 2.05 X1000 (1.2-3.4); LYMPH% 26.2 % (20.5-51.1); MCH 29.6 PG (27-31); MCHC 32.5 g/dL (33-37); MONO# 0.87 X1000 (0.11-0.59); MONO% 11.1 % (1.7-9.3); MPV 12.3 FL (7.4-10.4); NEUT# 4.71 X1000 (1.4-6.5); NEUT% 60.2 % (42.2-75.2); PLT 131 X1000 (130-400); RBC 4.46 XMIL (4.2-5.4); RDW 14.2 % (11.5-14.5); WBC 7.82 X1000 (4.8-10.8)
[2019-10-22 13:48] LABS: INR 1.44; PROTIME 17.8 Seconds (11.0-16.0)
[2019-10-22 13:49] LABS: PTT 30.3 Seconds (22.3-41.8)
[2019-10-22 14:03] LABS: AGAP 14; ALB/GLOB RATIO 1.8; ALKALINE PHOSPHATASE 67 U/L (32-104); BUN 24 mg/dL (8-22); CALCIUM 9.7 mg/dL (8.8-10.2); CHLORIDE 99 mmol/L (98-107); COSMO 281; CREATININE 0.7 mg/dL (0.5-0.9); ESTIMATED GFR > 60; GLUCOSE 87 mg/dL (70-104); GOT 11 U/L (10-30); GPT 11 U/L (10-36); POTASSIUM 4.1 mmol/L (3.5-5.1); SODIUM 139 mmol/L (136-145); TCO2 26 mmol/L (25-35); TOTAL BILIRUBIN 0.42 mg/dL (0.20-1.00); TOTAL PROTEIN 6.2 g/dL (6.3-8.3)
[2019-10-22] MEDS ORDERED: LASIX IV ONE (14:28)
--- NOTE | 2019-10-22 14:52 | PROVIDER DOCUMENTATION ---
This chart was entered by Charo Rodney Scribe, acting as scribe for Teo Myers MD. HPI-Cardiac General - General Chief Complaint: Asthma Attack Stated Complaint: A FIB Time Seen by Provider: 10/22/19 12:28 Source: patient Allergies/Adverse Reactions: Patient Allergies Allergy/AdvReac Type Severity Reaction Status Date / Time amlodipine Allergy Unknown Verified 10/12/19 09:51 atorvastatin [From Lipitor] Allergy Unknown Verified 10/12/19 09:51 fenofibrate Allergy Unknown Verified 10/12/19 09:51 loperamide [From Imodium A-D] Allergy Unknown Verified 10/12/19 09:51 rosuvastatin [From Crestor] Allergy Unknown Verified 10/12/19 09:51 Home Medications: Home Medication List Medication Instructions Recorded Confirmed Last Taken Type Citalopram Hydrobromide [Celexa] 20 mg PO QHS 12/31/14 10/12/19 10/11/19 History Clonidine [Catapres] 0.1 mg PO BID 12/31/14 10/12/19 10/11/19 History Rivaroxaban [Xarelto] 20 mg PO WSUPPER #90 tablet 01/21/15 10/12/19 10/11/19 Rx Diltiazem HCl [Cartia Xt] 180 mg PO QAM 10/13/18 10/12/19 10/11/19 History Acetaminophen [Tylenol] 650 mg PO Q4H PRN PRN tab 10/14/18 10/12/19 10/11/19 Rx Hydralazine [Apresoline] 10 mg PO TID tab 10/14/18 10/12/19 10/11/19 Rx Telmisartan 80 mg PO DAILY 03/22/19 10/12/19 10/11/19 History Levothyroxine [Synthroid] 200 microgm PO DAILY@0700 #90 tab 03/23/19 10/12/19 10/11/19 Rx Sotalol [Betapace] 160 mg PO BID #60 tab 03/23/19 10/12/19 10/11/19 Rx Nitrofurantoin Wharton/Macrocryst 100 mg PO BID #14 cap 10/13/19 Unknown Rx [Macrobid] Pantoprazole Sodium [Protonix] 40 mg PO DAILY #1 tablet. 10/13/19 Unknown Rx Triamterene/Hydrochlorothiazid 1 ea PO DAILY #1 cap 10/13/19 Unknown Rx [Triamterene-Hctz 37.5-25 mg Cp] - History of Present Illness-Cardiac Nature of Presenting Problem: [id number] presents to ED cc Afib and SOB since about 0430 this morning. She reports she doubled up on her Amlodipine but it didn't help. She has hx of Afib and was just seen in ED & admitted on 10/12/2019 for it. Pt denies CP/N/V/D/F/C. 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 She has just finished ABT for a UTI. She is in Afib according to monitor but is in no acute distress upon exam. Severity in ED: moderate Onset/Duration: this morning (0430) Timing: still present Context/Activities at Onset: reports: sleep Modifying Factors: improves with: nothing Palpitation Quality: irregular History of arrythmia: reports: A-Fib Recent use of:: reports: no stimulants Nitro Today/Relief: reports: no nitro taken today Aspirin Treatment Today: reports: no aspirin today Associated Symptoms: reports: shortness of breath Similar Symptoms Previously?: Yes Recently Seen Here or By Another Healthcare Provider: Yes (seen in Ed 10/12/2019) Review of Systems - Adult - REVIEW OF SYSTEMS - ADULT Constitutional: reports: see HPI. denies: chills, fever, fatique Eyes: reports: no symptoms reported Ears, Nose, Mouth & Throat: reports: no symptoms reported Cardiovascular: reports: see HPI, irregular heart rate. denies: chest pain Respiratory: reports: see HPI, shortness of breath. denies: cough Gastrointestinal: reports: see HPI. denies: diarrhea, nausea, vomiting Genitourinary: reports: no symptoms reported Musculoskeletal: reports: no symptoms reported Integumentary: reports: no symptoms reported Neurological: reports: no symptoms reported Psychiatric: reports: no symptoms reported Endocrine: reports: no symptoms reported Hematologic/Lymphatic: reports: no symptoms reported Allergic/Immunologic: reports: no symptoms reported All Other Systems: Reviewed and Negative Past History - Adult - PAST MEDICAL HISTORY-ADULT Review of Records: reports: Old Records Reviewed, Nursing Assessment Review, Medications Reviewed, Social history reviewed & non-contributory. Major Childhood Illnesses: reports: denies history Cardiovascular: reports: A-Fib, HTN Respiratory: reports: sleep apnea Gastrointestinal: reports: denies history Obstetrical/Gynecological: reports: denies history Genitourinary: reports: denies history Musculoskeletal: reports: denies history Neurological: reports: denies history Psychiatric: reports: denies history Endocrine/Immune: reports: thyroid disorder Other Conditions: reports: denies history - PRIOR SURGERIES/PROCEDURES Surgical/Procedure History: reports: cholecystectomy, hysterectomy, joint replacement - IMMUNIZATION STATUS Childhood Immunizations: See Nurse Assessment Flu Vaccine: See Nurse Assessment - FAMILY HISTORY Family History: reviewed, not pertinent - SOCIAL HISTORY Smoking: denies Physical Exam-General - PHYSICAL EXAM-ADULT Initial Vital Signs Reviewed: Yes - CONSTITUTIONAL General Appearance: appears well, alert, no apparent distress. negative: anxious, combative - EYES Eyes: PERRL/EOMI, pink conjunctivae. negative: photophobia - HEAD, EARS, NOSE, MOUTH & THROAT HENMT: normocephalic/atraumatic, moist mucous membranes. negative: angioedema - NECK Neck: non-tender, full range of motion, supple, normal inspection. negative: lymphadenopathy - RESPIRATORY Respiratory: chest non-tender, lungs clear, normal breath sounds. negative: rhonchi, wheezing - CARDIOVASCULAR Cardiovascular: normal peripheral pulses, tachycardia. negative: regular rate, rhythm, bradycardia - GASTROINTESTINAL (ABDOMEN) Abdominal Exam: normal bowel sounds, non tender, soft. negative: guarding, rebound - LYMPHATIC Lymphatic: no adenopathy. negative: enlargement - MUSCULOSKELETAL Back Exam: normal inspection, no CVA tenderness, no vertebral tenderness Extremity: normal range of motion, non-tender, normal gait, normal inspection. negative: deformity - SKIN Integumentary: normal color, normal turgor, warm/dry. negative: diaphoresis, jaundice, rash - NEUROLOGIC Neurologic: counter installer II-XII nml as tested, grossly normal - PSYCHIATRIC Psych/Mental Status: normal mood/affect, oriented x 3. negative: anxious, disheveled - HEART Score HEART Score: History: Moderately Suspicious HEART Score: ECG: Non-Specific Repolarization Disturbance/LBBB/PM HEART Score: Age: > or = 65 Years HEART Score: Risk Factors for Atherosclerotic Disease: 1 or 2 Risk Factors HEART Score: Troponin: < or = Normal Limit Total HEART Score:: 5 Progress - PLAN OF CARE/RESULTS Progress/Plan/Lab Results: Vital Signs - 8 hr 10/22/19 12:40 Temperature 97.6 F Pulse Rate 120 H Respiratory Rate 19 Blood Pressure 116/80 O2 Sat by Pulse Oximetry 97 Laboratory Results - last 24 hr 10/22/19 10/22/19 10/22/19 13:05 13:05 13:05 WBC RBC Hgb Hct MCV MCH MCHC RDW Std Deviation Plt Count MPV Immature Gran % (Auto) Neut % (Auto) Lymph % (Auto) Wharton % (Auto) Eos % (Auto) Baso % (Auto) Immature Gran # (Auto) Neut # (Auto) Lymph # (Auto) Wharton # (Auto) Eos # (Auto) Baso # (Auto) PT INR PTT (Actin FS) Sodium 139 Potassium 4.1 Chloride 99 Carbon Dioxide 26 Anion Gap 14 BUN 24 H Creatinine 0.7 Estimated GFR/1.73 m2 > 60 BUN/Creatinine Ratio 34 Glucose 87 Calculated Osmolality 281 Calcium 9.7 Total Bilirubin 0.42 AST 11 ALT 11 Alkaline Phosphatase 67 Troponin T High Sens 15 [id number]-[id number] Pept 3041 H Total Protein 6.2 L Albumin 4.0 Globulin 2.2 Albumin/Globulin Ratio 1.8 Plasma Lactate 10/22/19 10/22/19 10/22/19 13:05 13:05 13:20 WBC 7.82 RBC 4.46 Hgb 13.2 Hct 40.6 MCV 91.0 MCH 29.6 MCHC 32.5 L RDW Std Deviation 14.2 Plt Count 131 MPV 12.3 H Immature Gran % (Auto) 0.3 Neut % (Auto) 60.2 Lymph % (Auto) 26.2 Wharton % (Auto) 11.1 H Eos % (Auto) 1.8 Baso % (Auto) 0.4 Immature Gran # (Auto) 0.02 Neut # (Auto) 4.71 Lymph # (Auto) 2.05 Wharton # (Auto) 0.87 H Eos # (Auto) 0.14 Baso # (Auto) 0.03 PT 17.8 H INR 1.44 PTT (Actin FS) 30.3 Sodium Potassium Chloride Carbon Dioxide Anion Gap BUN Creatinine Estimated GFR/1.73 m2 BUN/Creatinine Ratio Glucose Calculated Osmolality Calcium Total Bilirubin AST ALT Alkaline Phosphatase Troponin T High Sens Uzh-H-Fyaemjfhzrq Pept Total Protein Albumin Globulin Albumin/Globulin Ratio Plasma Lactate 1.5 Orders Category Date Time Status Admit - [facility] Routine AdmDCTranf 10/22/19 15:04 Active NEWS Score 2-4:Order NEWS Lactate Series NOW Care 10/22/19 13:20 Active Resuscitation Status Routine Care 10/22/19 15:04 Ordered Saline Loc DIRECTED Care 10/22/19 15:04 Active Update & Confirm Home Medicati ROUTINE Care 10/22/19 15:08 Ordered Vital Signs Order ROUTINE Care 10/22/19 15:04 Active Z-Document. for Tele Applied ORDERED Care 10/22/19 15:06 Active Heart Healthy Diet Diet 10/22/19 15:06 Active CHEST-1 VIEW [RAD] Stat Exams 10/22/19 12:28 Completed CBC WITH ELECTRONIC DIFF [HEME] Stat Lab 10/22/19 13:05 Completed COMPREHENSIVE METABOLIC PANEL [CHEM] Stat Lab 10/22/19 13:05 Completed LACTATE, PLASMA [CHEM] Q3H Lab 10/22/19 13:05 Completed PRO B-NATRIURETIC PEPTIDE Stat Lab 10/22/19 13:05 Completed PROTIME WITH INR [COAG] Stat Lab 10/22/19 13:20 Completed PTT [COAG] Stat Lab 10/22/19 13:20 Completed TROPONIN T HIGH SENSITIVITY Stat Lab 10/22/19 13:05 Completed Acetaminophen [Tylenol] Med 10/22/19 15:04 Active 650 mg PO Q6H PRN PRN Furosemide [Lasix] Med 10/22/19 14:28 Discontinued 20 mg IV NOW ONE Ondansetron [Zofran] Med 10/22/19 15:04 Active 4 mg IV Q4H PRN PRN Oxygen Device Routine Oth 10/22/19 15:06 Active Telemetry [OM.EQ] Routine Oth 10/22/19 15:04 Active EKG [EKG] Stat Ther 10/22/19 12:28 Ordered Result Diagrams: 10/22/19 13:05 10/22/19 13:05 - EKG 1 Time of EKG reading by physician:: 12:45 EKG Read and Signed by:: Teo Myers EKG Interpretation (*Must complete 3 of following elements*): Abnormal (Cannot rule out Anterior Infarct, age undetermined; ST & T wave abnormality, consider inferior ischemia) Rate: 124 Rhythm: Afib w/RVR QRS: PVC's MS Interval: normal ST Wave: non-specific ST changes - XRAY 1 XRAY: Bilateral XRAY Study: Chest Impression: See EMR Report (IMPRESSION: Borderline cardiomegaly and pulmonary edema versus pneumonia. Electronically signed by Peewee Romero 10/22/2019 12:40 PM) - CONSULTS/PCP/HOSPITALIST Notification #1 *Consult/PCP/Hospitalist*: Dr. Cosby Time Discussed: 14:50 Consult Disposition: Will see in ED, Admit Departure - Departure Date of Disposition Decision: 10/22/19 Time of Disposition Decision: 14:46 DIAGNOSIS: SOB (shortness of breath), A-fib CHF exacerbation Qualifiers: Heart failure type: unspecified Qualified Code(s): I50.9 - Heart failure, unspecified Disposition: ADMITTED INPATIENT 09 Certified Medical Emergency: Emergent Condition: Fair Referrals and Follow-Ups: Dakota Johnston MD [Primary Care Provider] - - Critical Care Note This patient required my direct & personal management of CC.: No Attestation - Physician/ SESAR Attestation Patient care was provided by Advanced Practice Provider:: No The physician spent face to face time with patient:: Yes Advanced Practice Provider documentation review:: Supervising physician onsite and consulted in the evaluation and care of this patient. The physician did have a face to face encounter with the patient. This chart was documented by the indicated scribe, (Charo Rodney Scribe) and accurately reflects the services I performed and decisions made by me, Teo Myers MD, as attested by the provider's signature.
[2019-10-22] MEDS ORDERED: TYLENOL PO PRN (15:04)
[2019-10-22] MEDS ORDERED: ZOFRAN IV PRN (15:04)
[2019-10-22] MEDS ORDERED: CARDIZEM IV ONE (15:11)
[2019-10-22] MEDS: CARDIZEM 100 MG/NS 100 MG/100 ML IVPB IV SCH (16:42)
[2019-10-22] MEDS: BETAPACE PO SCH (17:27)
[2019-10-22] MEDS: XARELTO PO SCH (17:27)
--- NOTE | 2019-10-22 18:37 | EKG Report ---
Test Performed on : 10/22/2019 12:41:45 PM Test Reason : a-fib Blood Pressure : / mmHG Vent. Rate : 124 BPM Atrial Rate : 129 BPM P-R Int : 000 ms QRS Dur : 080 ms QT Int : 350 ms P-R-T Axes : 000 011 -83 degrees QTc Int : 502 ms Atrial fibrillation. with rapid ventricular response. with premature ventricular or aberrantly conduc jacob complexes. Cannot rule out Anterior infarct , age undetermined ST & T wave abnormality, consider inferior ischemia Abnormal ECG When compared with ECG of 13-OCT-2019 14:55, Atrial fibrillation. has replaced Sinus rhythm. Vent. rate has increased BY 66 BPM T wave inversion now evident in Inferior leads T wave inversion less evident in Lateral leads Unconfirmed Result
[2019-10-22] MEDS: CELEXA PO SCH (21:12)
[2019-10-23] MEDS: CARDIZEM 100 MG/NS 100 MG/100 ML IVPB IV SCH ×3 (01:00→22:16)
--- NOTE | 2019-10-23 04:11 | HISTORY AND PHYSICAL ---
CHIEF COMPLAINT: Atrial fibrillation. HISTORY OF PRESENT ILLNESS: This 79-year-old white female was discharged last week after a bout with atrial fibrillation. She underwent DC cardioversion and was discharged home in sinus rhythm. She remained in that state until this morning when she was awakened at approximately 4 a.m. and she noted that her heart was out of rhythm. She noted that she was a bit short of breath with exertion and "fought it as long as I could" when then came to the hospital. In the emergency room she was found to be in atrial fibrillation with a heart rate variable between 120 and 140 despite having taken extra sotalol that morning. Her proBNP was elevated compared to baseline and she was admitted for gentle diuresis and heart rate control measures. PAST MEDICAL HISTORY: 1. Paroxysmal atrial fibrillation, status post multiple cardioversions dating back to 2008. After her last hospitalization, she was scheduled to see an arabic linguist this last week but unfortunately missed the appointment. 2. Chronic anticoagulation. 3. History of coronary atherosclerosis. 4. Hypertension. 5. Metabolic syndrome. 6. Hypothyroidism. 7. Gastroesophageal reflux disease. 8. Obesity. 9. Obstructive sleep apnea. ALLERGIES: Fenofibrate, atorvastatin, amlodipine, loperamide, and rosuvastatin. SOCIAL HISTORY: The patient is . She is a nonuser of tobacco or alcohol. FAMILY HISTORY: Significant for coronary disease with a fatal heart attack to her father at age 69. REVIEW OF SYSTEMS: The patient denies any cough, wheezing, or shortness of breath. She has had no fever or chills. She had mild exertional dyspnea this morning after converting into atrial fibrillation. Prior to this morning's episode she had no other palpitations. She denies any nausea or vomiting. There was no other GI upset. She denies diarrhea or melena. She has no genitourinary complaints. It is noted that she was treated for urinary tract infection at last admission. She did not note any swelling of her lower extremities. She had no extremity rash or pain. She denied symptoms consistent with orthopnea. PHYSICAL EXAMINATION: GENERAL: She is a well-developed, well-nourished white female in no acute distress. ENT: Unremarkable. NECK: Showed no evidence of JVD. LUNGS: Clear to auscultation in all powell. CARDIOVASCULAR: Reveals an irregularly irregular rhythm with variable heart rate but is generally tachycardic. ABDOMEN: Showed bowel sounds were present. EXTREMITIES: No peripheral edema. Peripheral pulses were easily palpable. NEUROLOGIC: Speech was clear. Cranial nerves appear to be intact. She had no focal motor neurologic deficits by observation. LABORATORY: White count 7.82 . INR was 1.44. BUN 24, creatinine 0.7, potassium 4.1. ProBNP was 3,041. HS troponin was negative. ASSESSMENT AND PLAN: 1. The patient was readmitted to the hospital with paroxysmal atrial fibrillation. I am going to put her on a Cardizem drip and keep her basically on her same home medications with the exception of those which might make her hypotensive. We are going to add an extra dose of sotalol while we have the Cardizem drip going. We will consult Cardiology in the morning and have them register their input. They have seen her multiple times in the past. 2. Noted relatively low blood pressure She has a diagnosis of hypertension but she is at a relatively low value today. Will hold some of the regular meds and follow BP sequentially. Particularly with the addition of cardizem.. 3. I reviewed previous workups on record which did not show any significant systolic dysfunction. I suspect that her heart rate increase and loss of atrial kick caused some diastolic dysfunction and elevation of proBNP. We will recheck this value in AM 4. Metabolic syndrome. Aware 5. We will recheck TSH. 6. We will continue chronic anticoagulation with Xarelto which should also suffice for DVT prophylaxis. cc: MD Dakota Lin MD MTDD
[2019-10-23 06:29] LABS: AGAP 16; BUN 20 mg/dL (8-22); CALCIUM 9.7 mg/dL (8.8-10.2); CHLORIDE 98 mmol/L (98-107); COSMO 282; CREATININE 0.6 mg/dL (0.5-0.9); ESTIMATED GFR > 60; GLUCOSE 103 mg/dL (70-104); MAGNESIUM 1.7 mg/dL (1.5-2.7); POTASSIUM 3.9 mmol/L (3.5-5.1); SODIUM 140 mmol/L (136-145); TCO2 26 mmol/L (25-35)
[2019-10-23] MEDS: PROTONIX [NONFORMULARY] PO SCH (06:46)
[2019-10-23] MEDS: SYNTHROID PO SCH (06:46)
[2019-10-23] MEDS ORDERED: CARDIZEM CD PO SCH (09:00)
[2019-10-23] MEDS: MICARDIS PO SCH (09:06)
[2019-10-23] MEDS: BETAPACE PO SCH (09:08)
[2019-10-23] MEDS: AUGMENTIN PO SCH ×2 (12:00→21:29)
--- NOTE | 2019-10-23 12:31 | CARDIOLOGY CONSULTATION ---
DATE: 10/23/2019 HISTORY OF PRESENT ILLNESS: Ms. Alex is an 79-year-old lady with a history of paroxysmal atrial fibrillation who has undergone multiple cardioversions and has been evaluated by electrophysiology, Dr. Reyes, for a planned ablation. However, because of COVID and as per directives by the [facility] government, the procedure will be scheduled later on. She had been doing well, and yesterday she had noticed increasing shortness of breath with palpitations. She was admitted and was noted to be in atrial fibrillation with rapid ventricular rate of 130 beats per minute, and chest x-ray revealed heart failure as well. She denies any chest pain. There is no dizziness or syncope. She was short of breath associated with palpitations. There is no chest pain suggestive of angina. She was started on a Cardizem drip and admitted. REVIEW OF SYSTEMS: A 14-point review of systems was done.Gastrointestinal System: There is no history of nausea, vomiting, diarrhea. There is no history of hematemesis or melena. Central Nervous System: No focal weakness to suggest a CVA or TIA. Genitourinary System: There is no dysuria or hematuria. PAST MEDICAL HISTORY: 1. Paroxysmal atrial fibrillation, status post cardioversion in 2008, 2014, 2017, 2018, July 2019, and last scheduled on 10/13/2019. 2. Anticoagulation therapy. 3. Minimal coronary calcification. 4. Hypertension. 5. Prediabetes. 6. Hypothyroidism. 7. Gastroesophageal reflux disease. 8. Obesity. 9. Sleep apnea. HOME MEDICATIONS: Include Cartia XT 180 mg a day, Xarelto 20 mg a day, levothyroxine 200 mcg a day, sotalol 160 mg b.i.d., telmisartan, she uses a CPAP and Celexa. ALLERGIES: She is allergic to fenofibrate, atorvastatin, amlodipine, loperamide, and Crestor. PHYSICAL EXAMINATION: Vital Signs: On examination, blood pressure was 144/96. Cardiac: First and second heart sounds were heard. There was no S3 gallop. Respiratory System: Normal air entry. There are a few scattered crepitations. Abdomen: Soft, nontender. There was no guarding or rigidity. Bowel sounds were heard. Central Nervous System: Alert and was moving all 4 extremities. Extremities: Examination of the extremities revealed there was mild lower extremity edema. HEENT: Atraumatic, normocephalic. Pupils were equal and reacting to light. Neck: Examination of her neck, no lymphadenopathy. Trachea was central. LABORATORY EXAMINATION: Revealed sodium 140, potassium 3.9, BUN 20, creatinine 0.6, ProBNP elevated at 3041. TSH 0.27. WBC 7.82, hemoglobin 13.2, hematocrit 40.6, platelet count of 131,000. ASSESSMENT AND PLAN: Ms. Trent Alex is an 79-year-old lady with history of recurrent atrial fibrillation. She has a history of paroxysmal atrial fibrillation. She has been cardioverted on multiple occasions. She also has hypertension, hypothyroidism under control. She was recently cardioverted and comes back with palpitations and shortness of breath. ProBNP is elevated and chest x-ray on examination suggestive of diastolic heart failure. RECOMMENDATIONS: 1. I have discussed with Dr. Reyes. We will discontinue the sotalol and start her on amiodarone after 24 hours of flush out of sotalol. I will start her on amiodarone 400 mg twice daily for 2 days, followed by 400 mg a day. 2. We will continue with cardia XT and telmisartan, and in the interim for today I will continue with the Cardizem drip. Change it off from the Cardizem drip in the morning. 3. If her rate is under control, we could potentially discharge her home on Wednesday if the rate is under control and see her back as an outpatient in 1 week's time, and if she is still in atrial fibrillation, we will plan for a cardioversion at that time. 4. Anticoagulation therapy. Continue with Xarelto. 5. She has diastolic heart failure, probably secondary to her atrial fibrillation. She was given Lasix 20 IV. We will start her on Lasix 20 mg a day. 6. Hypothyroidism. Continue with levothyroxine as planned. Thank for the consult. We will follow hospital course. cc: MD Dakota Olivera MD
[2019-10-23] MEDS: XARELTO PO SCH (16:21)
[2019-10-23 16:39] LABS: URINE SOURCE CLEAN CATCH
[2019-10-23 16:55] LABS: BILIRUBIN URINE NEGATIVE (NEGATIVE); BLOOD URINE NEGATIVE (NEGATIVE); COLOR YELLOW; GLUCOSE URINE NEGATIVE (NEGATIVE); KETONE URINE NEGATIVE (NEGATIVE); LEUKOCYTES URINE NEGATIVE (NEGATIVE); NITRITE URINE NEGATIVE (NEGATIVE); PROTEIN URINE TRACE mg/dL (NEGATIVE); SP GRAVITY URINE 1.018; TURBIDITY URINE CLEAR (CLEAR); UR EPITHELIAL CELLS <10 /HPF (<10); URINE BACTERIA NEGATIVE /HPF; URINE RBC <10 /HPF (<10); URINE WBC <10 /HPF (<10); UROBILINOGEN URINE NORMAL (NORMAL)
--- NOTE | 2019-10-23 18:24 | PROGRESS NOTE ---
DATE: 10/23/2019 SUBJECTIVE: Patient's chart was reviewed. In summary, patient was admitted to the hospital yesterday with atrial fibrillation with rapid ventricular response. The patient was placed in the PVC unit. Cardizem drip was initiated. Sotalol was continued. Overnight, patient's rate remained slightly elevated between 100 and 120. Overall, patient is tolerating this reasonably well from a clinical standpoint. This morning, upon my arrival, patient was resting in bed. She did note mild shortness of breath associated with her tachycardia. Otherwise, she denies fevers, chills, nausea, vomiting, or chest discomfort. Cardiology was consulted for further evaluation and management. OBJECTIVE: T-max 97.8 degrees, heart rate 87 to 124, respirations 15 to 26, blood pressure 106 to 158 over 60 to 109.General: Well nourished, well developed, no acute distress. Cardiovascular: Irregularly irregular. No significant murmurs, rubs, or gallops. Pulmonary: Clear to auscultation bilaterally. Abdomen: Soft, nontender, nondistended. Positive bowel sounds. Extremities: Moves all extremities well. No significant clubbing, cyanosis, or edema. Dermatologic: Evaluation reveals no evidence of rash. LABORATORY DATA: Sodium 140, potassium 3.9, chloride 98, bicarb 26, BUN 20, creatinine 0.6, glucose 103, calcium 9.7, magnesium 1.7. ASSESSMENT AND PLAN: 1. Atrial fibrillation with rapid ventricular response-unfortunately, patient has experienced multiple symptomatic episodes. Most recently, she was admitted on 10/12/2019 with the same diagnosis. She was treated with a direct current cardioversion. Subsequent to hospitalization, patient had a teleconference with Dr. Reyes in [place], [place]. He suggested the possibility of initiating amiodarone as an alternative of sotalol. Dr. Arthur has been consulted. He agrees with this intervention. Sotalol will be held today. Amiodarone will be initiated tomorrow. If the patient has not converted to a normal sinus rhythm by Wednesday/, consideration for direct current cardioversion will be made. 2. Anticoagulation-patient is anticoagulated with Xarelto therapy. We will continue this. 3. Hypertension-patient's blood pressure has been labile while hospitalized. We will continue her current regimen. We will determine if further titration is necessary. 4. Reflux disease-we will continue omeprazole therapy. 5. Hypothyroidism-the patient is well-controlled on replacement. As of last evaluation, TSH was acceptable. 6. Disposition. At this point, patient continues to require penitentiary care in a hospital setting. We will plan discharge home once appropriate. cc: Dakota Johnston MD
[2019-10-23] MEDS ORDERED: BETAPACE PO SCH (21:00)
[2019-10-23] MEDS: CELEXA PO SCH (21:29)
[2019-10-24] MEDS: CARDIZEM 100 MG/NS 100 MG/100 ML IVPB IV SCH ×2 (04:33→19:09)
[2019-10-24] MEDS: SYNTHROID PO SCH (06:25)
[2019-10-24] MEDS: PROTONIX [NONFORMULARY] PO SCH (06:26)
--- NOTE | 2019-10-24 07:21 | EKG Report ---
Test Performed on : 10/24/2019 06:58:33 AM Test Reason : afib Blood Pressure : / mmHG Vent. Rate : 086 BPM Atrial Rate : 267 BPM P-R Int : 000 ms QRS Dur : 080 ms QT Int : 400 ms P-R-T Axes : 000 027 069 degrees QTc Int : 478 ms Atrial fibrillation. with premature ventricular or aberrantly conducted complexes. Low voltage QRS Nonspecific ST and T wave abnormality Abnormal ECG When compared with ECG of 22-OCT-2019 12:41, (Unconfirmed) T wave inversion no longer evident in Inferior leads T wave inversion no longer evident in Lateral leads Confirmed by Sebastian BAJWA, Isidro Diaz ([id number]) on 10/25/2019 9:24:45 AM
[2019-10-24] MEDS: AUGMENTIN PO SCH ×2 (08:03→20:05)
[2019-10-24] MEDS: CORDARONE PO SCH ×2 (08:03→20:05)
[2019-10-24] MEDS: CARDIZEM CD PO SCH (08:03)
[2019-10-24] MEDS: MICARDIS PO SCH (08:03)
[2019-10-24] MEDS: LASIX PO SCH (08:03)
--- NOTE | 2019-10-24 17:52 | PROGRESS NOTE ---
DATE: 10/24/2019 SUBJECTIVE: Upon my arrival this morning, patient states she felt reasonably well. She remained in atrial fibrillation with intermittent episodes of rapid ventricular response. Thus far, she has tolerated transition from sotalol to amiodarone therapy. Blood pressure has been slightly elevated through the day. She denies fevers, chills, nausea, or vomiting. P.o. intake is adequate. OBJECTIVE: T-max 98.1 degrees, heart rate 87 to 122, respirations 16 to 19, blood pressure 130 to 144 over 79 to 107.General: Well nourished, well developed, no acute distress. Cardiovascular: Irregularly irregular. Slightly tachycardic. No significant murmurs, rubs, or gallops. Pulmonary: Clear to auscultation bilaterally. Abdomen: Soft, nontender, nondistended. Positive bowel sounds. Extremities: Moves all extremities well. No significant clubbing, cyanosis, or edema. Dermatologic: Evaluation reveals no evidence of rash. LABORATORY DATA: None. ASSESSMENT AND PLAN: 1. Atrial fibrillation with rapid ventricular response-I appreciate Cardiology consultation. The patient is being transition from sotalol to amiodarone therapy. Long-acting Cardizem will be continued. If patient does not convert to a normal sinus rhythm and rate remains slightly elevated, we will plan cardioversion on . We will continue to monitor patient in the PVC unit with telemetry. 2. Anticoagulation-patient is treated with Xarelto therapy. Thus far, she is tolerating well. 3. Hypertension-blood pressure is slightly elevated. This likely is a consequence of medication adjustments. For now, we will continue her current regimen. We will plan to adjust as necessary once her cardiac medications have been stabilized. 4. Reflux disease-we will continue patient on omeprazole therapy. Symptoms are controlled. 5. Hypothyroidism-she is treated with levothyroxine replacement. As of last evaluation, TSH was acceptable. 6. Disposition. At this point, patient continues to require long term care in a hospital setting. We will plan discharge home once appropriate. cc: Dakota Johnston MD
[2019-10-24] MEDS: XARELTO PO SCH (18:00)
[2019-10-24] MEDS: LOPRESSOR PO SCH ×2 (19:08→19:59)
[2019-10-24] MEDS: CELEXA PO SCH (20:05)
[2019-10-25] MEDS: CARDIZEM 100 MG/NS 100 MG/100 ML IVPB IV SCH ×4 (01:33→21:23)
[2019-10-25] MEDS: LOPRESSOR PO SCH ×4 (02:20→20:18)
[2019-10-25] MEDS: PROTONIX [NONFORMULARY] PO SCH (06:02)
[2019-10-25] MEDS: SYNTHROID PO SCH (06:02)
--- NOTE | 2019-10-25 08:13 | EKG Report ---
Test Performed on : 10/25/2019 06:16:35 AM Test Reason : afib Blood Pressure : / mmHG Vent. Rate : 082 BPM Atrial Rate : 241 BPM P-R Int : 000 ms QRS Dur : 086 ms QT Int : 370 ms P-R-T Axes : 000 034 174 degrees QTc Int : 432 ms Atrial fibrillation. Low voltage QRS Nonspecific ST and T wave abnormality Abnormal ECG When compared with ECG of 24-OCT-2019 06:58, (Unconfirmed) Nonspecific T wave abnormality now evident in Inferior leads Confirmed by Sebastian BAJWA, Isidro Diaz ([id number]) on 10/25/2019 9:25:28 AM
[2019-10-25] MEDS: AUGMENTIN PO SCH ×2 (09:04→20:19)
[2019-10-25] MEDS: LASIX PO SCH (09:04)
[2019-10-25] MEDS: CORDARONE PO SCH ×2 (09:04→20:19)
[2019-10-25] MEDS: CARDIZEM CD PO SCH (09:04)
[2019-10-25] MEDS: MICARDIS PO SCH (09:05)
--- NOTE | 2019-10-25 16:10 | PROGRESS NOTE ---
DATE: 10/25/2019 SUBJECTIVE: Overall, patient states she is doing reasonably well. Patient has transitioned the change from sotalol to amiodarone therapy. Unfortunately, she continues to have atrial fibrillation with rates above 100 a vast majority of the time. With minimal exertion, heart rate increases further. She denies fevers, chills, nausea, vomiting, or chest discomfort. P.o. intake is adequate. OBJECTIVE: T-max 98.1 heart rate 84 to 139, respirations 14 to 27, blood pressure 117-142/78-100. General: Well nourished, well developed. No acute distress. Cardiovascular: Irregularly irregular. Slightly tachycardic. No significant murmurs, rubs, or gallops. Pulmonary: Clear to auscultation bilaterally. Abdomen: Soft, nontender, nondistended. Positive bowel sounds. Extremities: Moves all extremities well. No significant clubbing, cyanosis, or edema. Dermatologic: Evaluation reveals no evidence of rash. Laboratory Data: None. ASSESSMENT AND PLAN: 1. Atrial fibrillation with rapid ventricular response-I appreciate Dr. Arthur's consultation. At this point, patient has tolerated the transition from sotalol to amiodarone. Unfortunately, she has not converted back to a normal sinus rhythm. We will plan for DC cardioversion in the morning. Thereafter, if patient tolerates well and maintained a sinus generated rhythm, we will plan discharge home. Electrophysiology intervention will likely be warranted in the near future. 2. Anticoagulation-patient is tolerating Xarelto well. We will continue this. 3. Hypertension-blood pressure is labile but reasonably controlled on her current regimen. We will follow this. 4. Reflux disease-symptoms are controlled with omeprazole therapy. 5. Hypothyroidism-patient is treated with levothyroxine replacement. The last TSH was acceptable. 6. Disposition-at this point, patient continues to require custodial care in a hospital setting. We will plan discharge home once appropriate. cc: Dakota Johnston MD
[2019-10-25] MEDS: XARELTO PO SCH (18:04)
[2019-10-25] MEDS: CELEXA PO SCH (20:18)
[2019-10-26] MEDS: CARDIZEM 100 MG/NS 100 MG/100 ML IVPB IV SCH (04:06)
[2019-10-26] MEDS: PROTONIX [NONFORMULARY] PO SCH (06:09)
[2019-10-26] MEDS: SYNTHROID PO SCH (06:09)
[2019-10-26] MEDS: CARDIZEM CD PO SCH ×2 (07:44→08:26)
[2019-10-26] MEDS: MICARDIS PO SCH ×2 (07:44→08:26)
[2019-10-26 07:45] LABS: BASO# 0.03 X1000 (0.0-0.2); BASO% 0.3 % (0.0-0.8); EOS% 1.1 % (0.0-10.0); HEMATOCRIT 40.7 % (37.0-47.0); HEMOGLOBIN 13.3 g/dL (12.0-16.0); IMM GRAN# 0.02 X1000 (0.0-0.04); IMM GRAN% 0.2 % (0.0-0.5); LYMPH# 1.74 X1000 (1.2-3.4); LYMPH% 18.3 % (20.5-51.1); MCH 29.9 PG (27-31); MCHC 32.7 g/dL (33-37); MCV 91.5 FL (81-99); MONO# 0.78 X1000 (0.11-0.59); MONO% 8.2 % (1.7-9.3); MPV 11.7 FL (7.4-10.4); NEUT# 6.84 X1000 (1.4-6.5); NEUT% 71.9 % (42.2-75.2); PLT 181 X1000 (130-400); RBC 4.45 XMIL (4.2-5.4); RDW 14.3 % (11.5-14.5); WBC 9.51 X1000 (4.8-10.8)
[2019-10-26] MEDS: AUGMENTIN PO SCH ×2 (07:45→08:26)
[2019-10-26] MEDS: CORDARONE PO SCH ×2 (07:45→08:26)
--- NOTE | 2019-10-26 07:50 | EKG Report ---
Test Performed on : 10/26/2019 06:59:43 AM Test Reason : afib Blood Pressure : / mmHG Vent. Rate : 072 BPM Atrial Rate : 093 BPM P-R Int : 000 ms QRS Dur : 090 ms QT Int : 404 ms P-R-T Axes : 000 047 162 degrees QTc Int : 442 ms Atrial fibrillation. Nonspecific ST and T wave abnormality Abnormal ECG When compared with ECG of 25-OCT-2019 06:16, No significant change was found Confirmed by Sebastian BAJWA, Isidro Diaz ([id number]) on 10/26/2019 9:49:48 AM
[2019-10-26 07:54] LABS: INR 1.91; PROTIME 22.3 Seconds (11.0-16.0); PTT 33.7 Seconds (22.3-41.8)
[2019-10-26 08:12] LABS: AGAP 15; BUN 21 mg/dL (8-22); CALCIUM 9.2 mg/dL (8.8-10.2); CHLORIDE 96 mmol/L (98-107); COSMO 274; CREATININE 0.7 mg/dL (0.5-0.9); ESTIMATED GFR > 60; GLUCOSE 113 mg/dL (70-104); MAGNESIUM 1.6 mg/dL (1.5-2.7); POTASSIUM 3.6 mmol/L (3.5-5.1); SODIUM 135 mmol/L (136-145); TCO2 24 mmol/L (25-35)
[2019-10-26] MEDS ORDERED: CORDARONE PO SCH (09:00)
[2019-10-26] MEDS ORDERED: DIPRIVAN 1% ONE (09:07)
[2019-10-26] MEDS ORDERED: XYLOCAINE-MPF 1% 5 ML ONE (09:08)
[2019-10-26] MEDS ORDERED: ANESTHESIA PB SET 88 IN 5742 ONE (09:11)
[2019-10-26] MEDS ORDERED: NS 1,000 ML ONE (09:11)
[2019-10-26] MEDS ORDERED: ADENOCARD ONE (09:32)
--- NOTE | 2019-10-26 09:47 | CARDIAC CATH REPORT ---
PROCEDURE NAME: - INDICATION: Atrial fibrillation. PROCEDURE PERFORMED: Cardioversion. PROCEDURE IN DETAIL: Ms. Alex was brought to the catheterization laboratory in a fasting state. Informed consent was obtained. Prepped in the usual fashion. She was anesthetized per Anesthesia with propofol. After appropriate sedation, 1 shock was delivered at 120 joules in a synchronized fashion. This did not convert her. She subsequently was re-sedated. An additional shock was delivered at 150 joules in a synchronized fashion with conversion to sinus rhythm. No apparent complications. She tolerated the procedure without any issues. cc: MD Dakota Sanford MD
[2019-10-26] MEDS: LASIX PO SCH (10:25)
--- NOTE | 2019-10-26 10:53 | EKG Report ---
Test Performed on : 10/26/2019 10:22:19 AM Test Reason : post cardioversion Blood Pressure : / mmHG Vent. Rate : 055 BPM Atrial Rate : 055 BPM P-R Int : 194 ms QRS Dur : 088 ms QT Int : 472 ms P-R-T Axes : 062 048 084 degrees QTc Int : 451 ms Sinus bradycardia. Nonspecific T wave abnormality Abnormal ECG When compared with ECG of 26-OCT-2019 06:59, Sinus rhythm. has replaced Atrial fibrillation. Nonspecific T wave abnormality no longer evident in Inferior leads Confirmed by Sebastian BAJWA, Isidro Diaz ([id number]) on 10/27/2019 9:24:45 AM
[2019-10-26 11:28] VITALS: BP 158/96
--- NOTE | 2019-10-26 19:57 | DISCHARGE SUMMARY ---
ADMISSION DATE: 10/22/2019 DISCHARGE DATE: 10/26/2019 ADMISSION DIAGNOSIS: Atrial fibrillation. DISCHARGE DIAGNOSES: 1. Atrial fibrillation with rapid ventricular response, resolved. 2. Anticoagulation, present on arrival. 3. Hypertension, present on arrival. 4. Reflux disease, present on arrival. 5. Hypothyroidism, present on arrival. CONSULTATIONS: Dr. Arthur with Cardiology was consulted for further evaluation and management of atrial fibrillation with rapid ventricular response. PROCEDURES: A DC cardioversion was performed on 10/26/2019. HISTORY AND PHYSICAL EXAMINATION: See admit note. VITAL SIGNS: Temperature 97.7 degrees, heart rate 61, respirations 17, blood pressure is 158/96. General: Well nourished, well developed, no acute distress. Cardiovascular: Regular rate and rhythm. No significant murmurs, rubs, or gallops. Pulmonary: Clear to auscultation bilaterally. Abdomen: Soft, nontender, nondistended. Positive bowel sounds. Extremities: Moves all extremities well. No significant clubbing, cyanosis, or edema. Dermatologic: Evaluation reveals no evidence of rash. LABORATORY DATA PRIOR TO DISCHARGE: White blood cell count 9.51, hemoglobin 13.3, hematocrit 40.7, platelet count is 181,000. PT 23.3, INR is 1.91, PTT 33.7. Sodium 135, potassium 3.6, chloride 96, bicarb 24, BUN 21, creatinine 0.7, glucose 113, calcium 9.2, magnesium 1.6. ProBNP 1329. HOSPITAL COURSE: The patient was admitted as per history and physical examination. Hospital course per condition is as follows. 1. Atrial fibrillation with a rapid ventricular response - Upon admission, the patient was noted to have rates in the 120 to 140 range. Unfortunately, this has occurred on multiple occasions. Most recently, she was cardioverted within the last 1 to 2 weeks. Because of the frequent medication failures, the patient was transitioned from sotalol to amiodarone while hospitalized. Cardizem drip was continued. Despite this change in medication, she remained in atrial fibrillation with rapid ventricular response. On the day of discharge, the patient was DC cardioverted again. She will be discharged home with Cardizem and amiodarone therapy. Followup with Dr. Turner will be scheduled in 1 week. The patient likely will require EP intervention once able. 2. Anticoagulation - The patient was maintained on Xarelto while hospitalized. She tolerated this well. We will continue this as an outpatient. 3. Hypertension - Blood pressure has been slightly elevated while hospitalized. She will be discharged home on her same medications. We will need to monitor this closely with the addition of amiodarone. The patient understands she should hold her clonidine and hydralazine for systolic blood pressure less than 140. 4. Reflux disease - The patient's symptoms remained adequately controlled with omeprazole therapy. 5. Hypothyroidism - The patient is treated with levothyroxine replacement. TSH per last evaluation was acceptable. DISCHARGE CONDITION: Good. DISPOSITION: Discharged to home. MEDICATIONS: 1. Amiodarone 400 mg daily. 2. Citalopram 20 mg at bedtime. 3. Xarelto 20 mg with supper. 4. Diltiazem ER 180 mg daily. 5. Tylenol 650 mg every 4 hours as needed. 6. Telmisartan 80 mg daily. 7. Levothyroxine 200 mcg daily. 8. Triamterene/hydrochlorothiazide 37.5/25 daily. 9. Protonix 40 mg daily. 10. Hydralazine 10 mg 3 times daily, hold for systolic blood pressure less than 140. 11. Catapres 0.1 mg twice daily, hold for systolic blood pressure less than 140. 12. Discontinue sotalol. FOLLOWUP: 1. The patient is to follow up with Dr. Turner in 1 week. 2. The patient is to follow up with me as arranged. cc: Dakota Johnston MD
[2019-10-27] MEDS ORDERED: CORDARONE PO SCH (09:00)
== END 2019-10-26 14:15 | disposition home or self-care (01) | DRG 309 ==
LOC: ED 12:24 → 2N 15:27
PROVIDERS: ADMIT Internal Medicine; ATTEND Internal Medicine

== ENCOUNTER 2019-10-27 09:46 | Inpatient (IN) ==
[2019-10-27] MEDS ORDERED: TYLENOL PO PRN ×2 (09:48→09:53)
[2019-10-27] MEDS ORDERED: CARDIZEM IV ONE (09:54)
[2019-10-27 11:57] LABS: BASO# 0.02 X1000 (0.0-0.2); BASO% 0.2 % (0.0-0.8); EOS# 0.09 X1000 (0.0-0.7); EOS% 0.7 % (0.0-10.0); HEMATOCRIT 41.3 % (37.0-47.0); HEMOGLOBIN 13.3 g/dL (12.0-16.0); LYMPH# 2.04 X1000 (1.2-3.4); LYMPH% 16.5 % (20.5-51.1); MCHC 32.2 g/dL (33-37); MONO% 10.5 % (1.7-9.3); MPV 12.1 FL (7.4-10.4); NEUT# 8.95 X1000 (1.4-6.5); NEUT% 72.1 % (42.2-75.2); PLT 182 X1000 (130-400); RBC 4.44 XMIL (4.2-5.4); RDW 14.8 % (11.5-14.5)
[2019-10-27] MEDS ORDERED: CORDARONE 360 MG/D5W 360 MG/200 ML IV.SOLN IV ONE (11:57)
--- NOTE | 2019-10-27 12:08 | EKG Report ---
Test Performed on : 10/27/2019 11:55:09 AM Test Reason : Atrial fibrillation with RVR Blood Pressure : / mmHG Vent. Rate : 154 BPM Atrial Rate : 288 BPM P-R Int : 000 ms QRS Dur : 086 ms QT Int : 304 ms P-R-T Axes : 000 032 255 degrees QTc Int : 486 ms Critical Test Result: High HR Marked ST abnormality, possible inferior subendocardial injury Abnormal ECG When compared with ECG of 26-OCT-2019 10:22, Atrial flutter. has replaced Sinus rhythm. Vent. rate has increased BY [address] now depressed in Inferior leads ST now depressed in Anterolateral leads T wave inversion now evident in Inferior leads Confirmed by Sebastian BAJWA, Isidro Diaz ([id number]) on 10/30/2019 9:24:30 AM
[2019-10-27 12:17] LABS: ALB/GLOB RATIO 1.5; CALCIUM 9.3 mg/dL (8.8-10.2); CREATININE 0.9 mg/dL (0.5-0.9); POTASSIUM 3.6 mmol/L (3.5-5.1); TOTAL BILIRUBIN 0.46 mg/dL (0.20-1.00); TOTAL PROTEIN 6.7 g/dL (6.3-8.3)
[2019-10-27 13:10] LABS: URINE SOURCE CLEAN CATCH
[2019-10-27 13:13] LABS: BILIRUBIN URINE NEGATIVE (NEGATIVE); BLOOD URINE NEGATIVE (NEGATIVE); COLOR YELLOW; GLUCOSE URINE NEGATIVE (NEGATIVE); KETONE URINE NEGATIVE (NEGATIVE); LEUKOCYTES URINE NEGATIVE (NEGATIVE); NITRITE URINE NEGATIVE (NEGATIVE); PH URINE 6.5; PROTEIN URINE NEGATIVE (NEGATIVE); SP GRAVITY URINE 1.014; TURBIDITY URINE CLEAR (CLEAR); UR EPITHELIAL CELLS <10 /HPF (<10); URINE BACTERIA NEGATIVE /HPF; URINE RBC <10 /HPF (<10); URINE WBC <10 /HPF (<10); UROBILINOGEN URINE NORMAL (NORMAL)
[2019-10-27] MEDS ORDERED: CORDARONE 150 MG/D5W 150 MG/100 ML IV.SOLN IV ONE (13:33)
[2019-10-27] MEDS ORDERED: APRESOLINE PO SCH (14:00)
--- NOTE | 2019-10-27 14:33 | CARDIOLOGY CONSULTATION ---
DATE: 10/27/2019 Ms. Alex is an 79-year-old, lady with history of paroxysmal atrial fibrillation. Has undergone multiple cardioversions as listed below. In addition, she was recently cardioverted to sinus rhythm on 10/26/2019 and discharged home. She is back again with having palpitations, was noted to be in atrial fibrillation with rapid ventricular rate. The patient does not complain of any dizziness or syncope. Patient has had some shortness of breath. She had complicated ongoing issues with atrial fibrillation status post cardioversion in 2008, 2014, 2016, 2018 and in 2019 she has had cardioversions in July and again in September and on October 2015. She was started on IV amiodarone drip. In the past, she has been on sotalol however which on maximum dose of sotalol and Cardizem, she had been going back and forth into atrial fibrillation. I consulted electrophysiology and we had decided to change her to amiodarone. During her recent hospitalization, she was started on amiodarone 400 mg p.o. b.i.d., however she continued to have atrial fibrillation with rapid ventricular rate and was cardioverted on 10/26/2019 to sinus rhythm. She was discharged home on amiodarone. She comes back with atrial fibrillation with rapid ventricular rate. Right now she has been started on IV amiodarone. REVIEW OF SYSTEMS: Fourteen point review of systems was done. GI System: There is no history of nausea, vomiting, diarrhea. There is no history of hematemesis or melena. Central nervous system: No focal weakness to suggest a CVA, TIA. System: There is no dysuria or hematuria. Respiratory system: As above. There is no history of fevers, chills, cough or expectoration. PAST MEDICAL HISTORY: 1. Paroxysmal atrial fibrillation as listed above. 2. Anticoagulation therapy with Xarelto 20. 3. Atrial fibrillation related diastolic heart failure during recent hospitalization. 4. Hypothyroidism. 5. Coronary atherosclerosis calcium score of 231. 6. Hypertension. 7. Prediabetic. 8. Gastroesophageal reflux disease. On prior EGD she was noted to have a Schatzki's ring. 9. Lexiscan Cardiolite stress test 11/28/2018. Revealed no evidence of ischemia. Last echocardiogram 05/06/2017 left atrium moderate enlargement. Left ventricular ejection fraction of 65%. 10. LDL of 103. 11. Sleep apnea. CURRENT MEDICATIONS INCLUDE: 1. Clonidine 0.1 mg p.o. b.i.d. 2. Cardizem CD 180 mg a day. 3. Amiodarone 400 mg a day. 4. Levothyroxine 200 mcg a day. 5. Triamterene hydrochlorothiazide. 6. Telmisartan 80. 7. Celexa 20. 8. Xarelto 20 mg a day. ALLERGIES: She is allergic to amlodipine, atorvastatin, fenofibrate, rosuvastatin, loperamide. SOCIAL HISTORY: She does not smoke. Does not drink. Patient lives locally in [place]. PHYSICAL EXAMINATION: Blood pressure was 144/90.Cardiovascular: First and second heart sounds were heard. There was no S3 gallop. Respiratory System: Normal air entry. Decreased breath sounds at base. There were no crepitations. Abdomen: Soft, nontender. There was no guarding or rigidity. Bowel sounds were heard. Central nervous system: Alert and oriented. Was moving all 4 extremities. Extremities: Examination of extremities revealed no pedal edema. HEENT: Atraumatic, normocephalic. Pupils were equal and reacting to light. LABORATORY: Examinations done today WBC 12, hemoglobin 13.3, hematocrit 41, platelet count of 182,000. Sodium 140, potassium 3.6, BUN 27, creatinine 0.9. Magnesium 1.8. Liver function tests unremarkable. Cardiac enzymes negative. ASSESSMENT AND PLAN: 1. Ms. Trent Alex is an 79-year-old lady with history of hypertension, prediabetes, hypothyroidism, obstructive sleep apnea, comes with complaints of having palpitations, noted to be in atrial fibrillation with rapid ventricular rate. She has a calcium score of 231. In 2019, she had a Cardiolite stress test which was negative for ischemia. 2. As far as atrial fibrillation is concerned, she has been cardioverted on 3 occasions this year and has had multiple cardioversions since 2008 as listed above. We will start her on amiodarone drip. She had been on p.o. amiodarone for the last 4 days and had to be cardioverted given atrial fibrillation with rapid ventricular rate. As mentioned above she also was on sotalol in the past at 160 mg p.o. twice daily. In addition, had breakthrough atrial fibrillation requiring cardioversions. I will discuss with electrophysiology to see if patient can be transferred in house for consideration off ablation, either AV node or pulmonary vein ablation. 3. We will get an echocardiogram to assess cardiac and valvular function. 4. We will continue with the IV amiodarone and 24 hours later change her to 400 mg p.o. b.i.d. 5. Hypertension. Continue with Cardizem and telmisartan and hydrochlorothiazide. 6. Hypothyroidism. Continue with her levothyroxine. Thank for the consult. We will follow hospital course. cc: MD Dakota Olivera MD
--- NOTE | 2019-10-27 16:55 | ECHO REPORT ---
ORDER DATE: 10/27/2019 PROCEDURE: 2D echocardiogram. ECHOCARDIOGRAPHIC MEASUREMENTS: 1. Interventricular septum 1.1. 2. Left ventricular posterior wall 1.1. 3. Diastolic diameter 5.4. 4. Left atrium 4.8 cm. 5. Aorta 4 cm. 6. Left atrial index 40.59 mL per meter squared. FINDINGS: 1. Tricuspid valve was normal. 2. Patient was in atrial fibrillation. Heart rate varying from 120 to 130 beats per minute. 3. Aortic valve leaflets are trileaflet. 4. Pulmonic valve was normal. There is trace pulmonary regurgitation. 5. Tricuspid valve was normal. There is biatrial enlargement. 6. There is mild mitral regurgitation. 7. Indeterminant diastolic function given atrial fibrillation. 8. There is mild tricuspid regurgitation. Peak velocity across the tricuspid valve was 2.2 m/sec. There is mild mitral regurgitation. 9. There is no aortic stenosis or regurgitation. 10. Peak velocity across the aortic valve less than 2 m/sec. There is no aortic stenosis or regurgitation. 11. Normal left ventricular cavity size. Estimated ejection fraction of 55%. However patient was tachycardiac as this could overestimate the left ventricular systolic function. 12. There is trace anterior echo-free space suggestive of pericardial fat pad. There is no pericardial effusion or obvious intracardiac mass or thrombus seen. cc: MD Dakota Olivera MD
[2019-10-27] MEDS ORDERED: XARELTO PO SCH (17:00)
--- NOTE | 2019-10-27 17:32 | HISTORY AND PHYSICAL ---
PRIMARY CARE PHYSICIAN: Dr. Dakota Johnston. CHIEF COMPLAINT: Palpitations. HISTORY OF PRESENT ILLNESS: An 79-year-old white female with a complicated past medical history presents for evaluation of above-mentioned symptoms. Pertinent history of present illness began on October 11. At that time, patient was admitted to [facility] with atrial fibrillation with rapid ventricular response. Patient was placed on a Cardizem drip and ultimately required direct current cardioversion. She tolerated this quite well. The patient remained in a sinus-generated rhythm until October 22. Unfortunately, she again developed atrial fibrillation with rapid ventricular response. She was admitted and sotalol was transitioned to amiodarone therapy. Ultimately, she required direct current cardioversion yesterday. She was discharged home thereafter. Upon awaking this morning, patient states she felt reasonably well. She ate breakfast and had a cup of coffee and soon thereafter developed atrial fibrillation with rapid ventricular response. The patient contacted my office and patient was examined in the parking lot as she was attempting to avoid ER visit. She was indeed found to have atrial fibrillation with rapid ventricular response. Immediate admission to the PVC unit was arranged. Of note, patient denies fevers, chills, nausea, vomiting, shortness of breath, chest discomfort, dysuria, hematuria, pyuria, or change in bowel movements. The patient recently was seen by Dr. Reyes at [facility]. EP intervention was recommended, but is unable to be performed at this time secondary to COVID-19 restrictions. PAST MEDICAL HISTORY: 1. Abnormal skin examination with multiple actinic keratoses. 2. Anxiety/depression. 3. History of appendicitis status post open appendectomy in 1968. 4. Bladder spasms. 5. Right-sided cataract removal in 2013. 6. Cholelithiasis status post open cholecystectomy in 1978. 7. History of diverticulitis. 8. Reflux disease. 9. Hypertension. 10. Hypertriglyceridemia. 11. Chronic fatigue. 12. Nonalcoholic fatty liver disease. 13. History of parathyroid adenoma status post parathyroidectomy. 14. Hyperlipidemia. 15. Hypothyroidism. 16. Impaired fasting glucose. 17. Long-term anticoagulation with Xarelto. 18. Menopause. 19. History of tobacco use. 20. Obstructive sleep apnea. 21. Osteoarthritis. 22. Overweight. 23. Palpitations. 24. Paroxysmal atrial fibrillation. 25. History of right plantar fasciitis in February 2016. 26. History of small bowel obstruction in 1987. 27. Uterine leiomyoma status post HUBERT and unilateral oophorectomy in 1968. CURRENT MEDICATIONS: 1. Acetaminophen 650 mg every 4 hours as needed. 2. Amiodarone 400 mg daily. 3. Celexa 20 mg at bedtime. 4. Clonidine 0.1 mg twice daily. 5. Cardizem LA 180 mg daily. 6. Levothyroxine 200 mcg daily. 7. Pantoprazole 40 mg daily. 8. Xarelto 20 mg with supper. 9. Telmisartan 80 mg daily. 10. Triamterene/hydrochlorothiazide 1 tablet daily. ALLERGIES: The patient states she is allergic to Lotrel which causes edema, Crestor which causes reflux, fenofibrate which causes myalgias, Imodium which causes abdominal pain, Lipitor which causes reflux disease, and pravastatin which causes abdominal pain. SOCIAL HISTORY: Patient previously smoked 3/4 pack per day for 26 years. She quit in 1981. She denies alcohol or illicit drug use. She is retired from [employer]. She enjoys painting and crocheting. She walks routinely. FAMILY HISTORY: Patient's father passed at age 69 secondary to complications of acute myocardial infarction. Patient's mother passed at age 93 secondary to complications of presumed pancreatic cancer. REVIEW OF SYSTEMS: A 12 point review of systems was performed. Pertinent positives and negatives are noted in history present illness. PHYSICAL EXAMINATION: VITAL SIGNS: Temperature 97.8 degrees, heart rate 148, respirations 19, blood pressure is 155/86. GENERAL: Well nourished, well developed, no acute distress. HEENT: Normocephalic, atraumatic. Pupils equal, round, react to light. Extraocular muscles intact. Sclerae anicteric. Economy conjunctivae. Oral and nasopharynx clear without exudate. NECK: Supple. No lymphadenopathy. No thyromegaly. No bruits auscultated. CARDIOVASCULAR: Irregularly irregular. Tachycardic. No significant murmurs, rubs, or gallops. PULMONARY: Clear to auscultation bilaterally. ABDOMEN: Soft, nontender, nondistended. Positive bowel sounds. EXTREMITIES: Moves all extremities well. No significant clubbing, cyanosis, or edema. NEUROLOGIC: Cranial nerves 2-12 grossly intact. Motor and sensory grossly intact. PSYCHOLOGIC: Appropriate. LABORATORY DATA: White blood cell count 12.40, hemoglobin 13.3, hematocrit 41.3, platelet count 182,000. Sodium 140, potassium 3.6, chloride 100, bicarb 23, BUN 27, creatinine 0.9, glucose 103, calcium 9.3, magnesium 1.8, total bilirubin 0.46, total protein 6.7, albumin 4.0, alkaline phosphatase 72, AST 29, ALT 17. Urinalysis returned negative. ASSESSMENT AND PLAN: 1. Atrial fibrillation with rapid ventricular response-I discussed this in detail with Dr. Arthur. Unfortunately, patient has failed sotalol and is currently failing amiodarone therapy. She would benefit from an urgent electrophysiology intervention, however this has not been able to be arranged secondary to Coronavirus Disease [address] Arthur's consultation and further assistance. We will place patient on amiodarone drip. We will continue anticoagulation with Xarelto therapy. He has discussed this further with [facility] and a possible transfer will be considered. 2. Anticoagulation-patient is treated with Xarelto therapy. We will continue this. 3. Hypertension-patient's blood pressure is currently elevated. We will follow for now but adjust medications as necessary once heart rate is better controlled. 4. Reflux disease-we will continue patient on omeprazole therapy. 5. Leukocytosis-I suspect this is reactive. She has no evidence of infection. We will follow this as well. 6. Fluid, electrolytes, nutrition. We will monitor electrolytes. We will place patient on a cardiac prudent diet. 7. Prophylaxis. Patient will be continued on Xarelto therapy. cc: Dakota Johnston MD
[2019-10-27] MEDS ORDERED: CORDARONE 540 MG in D5W 289.2 ML IV ONE (18:00)
[2019-10-27] MEDS: CATAPRES PO SCH (20:03)
[2019-10-27] MEDS ORDERED: CELEXA PO SCH (21:00)
[2019-10-28] MEDS: SYNTHROID PO SCH ×2 (04:49→05:59)
[2019-10-28] MEDS: CATAPRES PO SCH (08:10)
--- NOTE | 2019-10-28 08:25 | EKG Report ---
Test Performed on : 10/28/2019 06:31:49 AM Test Reason : AFLUTTER Blood Pressure : / mmHG Vent. Rate : 132 BPM Atrial Rate : 144 BPM P-R Int : 000 ms QRS Dur : 084 ms QT Int : 262 ms P-R-T Axes : 000 039 235 degrees QTc Int : 388 ms Atrial fibrillation. with rapid ventricular response. Low voltage QRS Nonspecific ST and T wave abnormality Abnormal ECG When compared with ECG of 27-OCT-2019 11:55, (Unconfirmed) Atrial fibrillation. has replaced Atrial flutter. ST no longer depressed in Inferior leads Nonspecific T wave abnormality has replaced inverted T waves in Inferior leads Confirmed by Sebastian BAJWA, Isidro Diaz ([id number]) on 10/30/2019 9:24:58 AM
[2019-10-28] MEDS ORDERED: CARDIZEM IV ONE (08:32)
[2019-10-28] MEDS: CARDIZEM 100 MG/NS 100 MG/100 ML IVPB IV SCH ×2 (08:54→15:11)
[2019-10-28] MEDS ORDERED: CARDIZEM LA PO SCH (09:00)
[2019-10-28] MEDS ORDERED: CORDARONE PO SCH ×2 (09:00)
[2019-10-28] MEDS ORDERED: PROTONIX [NONFORMULARY] PO SCH (09:00)
[2019-10-28] MEDS ORDERED: MICARDIS PO SCH (09:00)
[2019-10-28] MEDS ORDERED: DYAZIDE PO SCH (09:00)
--- NOTE | 2019-10-28 11:47 | Diag Imaging Result Doc PS360 ---
EXAM: CHEST-1 VIEW HISTORY: dyspnea TECHNIQUE: Single view COMPARISON: 10/22/2019 FINDINGS: The lungs are well expanded. The heart is enlarged. The vessels are not distended. There are no infiltrates. No effusion identified. IMPRESSION: Cardiomegaly Electronically signed by Joe Herrera 10/28/2019 11:44 AM
[2019-10-28 15:21] VITALS: BP 131/104
--- NOTE | 2019-10-28 18:37 | DISCHARGE SUMMARY ---
ADMISSION DATE: 10/27/2019 DISCHARGE DATE: 10/28/2019 DATE OF TRANSFER: 10/28/2019 ADMISSION DIAGNOSIS: Tachycardia. DISCHARGE/TRANSFER DIAGNOSES: 1. Atrial fibrillation with rapid ventricular response, refractory. 2. Anticoagulation, present on arrival. 3. Hypertension, present on arrival. 4. Reflux disease, present on arrival. 5. Leukocytosis without evidence of infection. CONSULTATIONS: Dr. Arthur with Cardiology was consulted for further evaluation and management of atrial fibrillation. PROCEDURES: An echocardiogram was performed on 10/27/2019 which revealed normal tricuspid valve, trileaflet aortic valve, normal pulmonic valve with trace pulmonary regurgitation, biatrial enlargement. Mild mitral regurgitation. Indeterminate diastolic function given atrial fibrillation. Mild tricuspid regurgitation. Mild mitral regurgitation. No aortic stenosis or regurgitation. Normal left ventricular cavity size. Estimated ejection fraction of 55%. Trace anterior echo-free space suggestive of pericardial fat pad. No pericardial effusion or obvious intracardiac mass or thrombus is seen. HISTORY AND PHYSICAL EXAMINATION: See admit note. PHYSICAL EXAMINATION PRIOR TO DISCHARGE: Temperature 98.1 degrees, heart rate 127, respirations 33, blood pressure is 131/101. General: Well nourished, well developed, no acute distress. Cardiovascular: Irregularly irregular. Tachycardic. No significant murmurs, rubs, or gallops. Pulmonary: Clear to auscultation bilaterally. Abdomen: Soft, nontender, nondistended. Positive bowel sounds. Extremities: Moves all extremities well. No significant clubbing, cyanosis, or edema. Dermatologic: Evaluation reveals no evidence of rash. LABORATORY DATA PRIOR TO DISCHARGE: None. HOSPITAL COURSE: Patient was admitted as per history and physical examination. Hospital course per condition is as follows. 1. Atrial fibrillation with rapid ventricular response-unfortunately, this is patient's 3rd hospitalization in the last 2 weeks secondary to atrial fibrillation with rapid ventricular response. She has failed sotalol and amiodarone therapy. Two previous hospitalizations required direct current cardioversion. Upon admission this time, patient was started on amiodarone drip. Unfortunately, heart rate remained significantly elevated. Amiodarone was changed to oral. Cardizem drip was then initiated. Heart rates then ranged between [address] Arthur was consulted. He discussed case in detail with cardiology at [facility]. Because of the refractory nature of her atrial fibrillation, it was felt that an urgent EP evaluation and intervention was most warranted. The patient will be transferred to [facility] electrophysiology service for intervention. Patient understands and wishes to proceed with this plan. 2. Anticoagulation-patient was continued on Xarelto while hospitalized. Thus far, she has tolerated this well. 3. Hypertension-blood pressure has been quite labile. At this point, I am hesitant to make any medication changes secondary to her need for a diltiazem drip and possible other medications per Cardiology. This will need to be followed as an outpatient. 4. Reflux disease-symptoms remained adequately controlled with omeprazole therapy. 5. Leukocytosis-patient has no evidence of infection or fever. I suspect this was reactive. This will need to be followed as well. DISCHARGE CONDITION: Good. DISPOSITION: Discharge to [facility]. MEDICATIONS: 1. Acetaminophen 650 mg every 4 hours as needed. 2. Amiodarone 400 mg twice daily. 3. Celexa 20 mg at bedtime. 4. Clonidine 0.1 mg twice daily as needed for systolic blood pressure greater than 140. 5. Cardizem-LA 180 mg daily. 6. Levothyroxine 200 mcg daily. 7. Pantoprazole 40 mg daily. 8. Xarelto 20 mg daily with supper. 9. Telmisartan 80 mg daily. 10. Triamterene/hydrochlorothiazide daily. 11. Cardizem drip. FOLLOWUP: The patient is to follow up with me within 1 to 2 weeks of discharge from [facility]. cc: Dakota Johnston MD
== END 2019-10-28 16:40 | disposition short-term general hospital (02) | DRG 309 ==
LOC: DIRADM 09:46 → 2N 10:49
PROVIDERS: ADMIT Internal Medicine; ATTEND Internal Medicine